=== PATIENT | male | born 1945 | race Caucasian/White ===

== ENCOUNTER → 2020-01-02 11:27 | Outpatient (CLI) | payer MEDICARE, OTHER, SELFPAY ==
[2020-01-02 12:10] LABS: Basophils % 0.8 % (0.1-2.0); Eosinophils % 0.8 % (0.1-12.0); Hematocrit 51.6 % (42.0-52.0); Hemoglobin 17.1 g/dL (14.1-18.0); Lymphocytes # 1.4 K/mm3 (0.7-4.5); Lymphocytes % 28.2 % (10-50); Mean Corpuscular HGB Conc 33.1 g/dL (31.8-35.4); Mean Corpuscular Hemoglobin 30.2 pg (27.0-31.2); Mean Corpuscular Volume 91.2 fl (80-94); Mean Platelet Volume 8.1 fl (7.4-10.4); Monocytes # 0.4 K/mm3 (0.1-1.0); Monocytes % 7.7 % (1.7-9.3); Neutrophils % 62.5 % (37.0-80.0); Platelet Count 169 K/mm3 (142-424); Red Blood Count 5.66 M/mm3 (4.60-6.20); Red Cell Distribution Width 14.3 % (11.5-17.5); White Blood Count 4.8 K/mm3 (4.8-10.8)
== END ==
PROVIDERS: PCP Family Medicine; Visit Provider Nurse Practitioner
DX: Z20.828 Contact with and (suspected) exposure to other viral communicable diseases (principal); U07.1 COVID-19
CPT/HCPCS: 36415; 85025; 87275; 87276; U0003

== ENCOUNTER 2020-09-14 19:45 | Observation (INO) | payer MEDICARE, OTHER, SELFPAY ==
[2020-09-14] VITALS (8 sets, daily range): BP systolic 142–183; BP diastolic 73–110; PULSE 59–71; RESP 16; TEMP 36.8; O2SAT 94–99; BMI 31.0
--- NOTE | 2020-09-14 20:01 | ECG_ITS ---
APPROVED REPORT Exam: Resting ECG HR:56 bpm ECG Measurements Heart Rate 56 AXES DC 196 P 78 QRSd 82 QRS -29 QT 446 T 242 QTc 430 Conclusion Sinus bradycardia Inferior infarct, age undetermined Anterolateral infarct, age undetermined Abnormal ECG Electronically signed by : Robert Betts, 09/15/2020 08:24:00
--- NOTE | 2020-09-14 20:01 | CT_ITS ---
PROCEDURE INFORMATION: Exam: CT Abdomen And Pelvis With Contrast Exam date and time: 09/14/2020 8:01 PM Age: 75 years old Clinical indication: Abdominal pain; Epigastric; Prior surgery; Surgery date: 6+ months; Surgery type: Gallbladder, appendix; Patient HX: Gassy feeling in stomach that goes up in to chest, has had episodes of abd bloating TECHNIQUE: Imaging protocol: Computed tomography of the abdomen and pelvis with contrast. Radiation optimization: All CT scans at this facility use at least one of these dose optimization techniques: automated exposure control; mA and/or kV adjustment per patient size (includes targeted exams where dose is matched to clinical indication); or iterative reconstruction. Contrast material: ISOVUE; Contrast volume: 75 ml; Contrast route: IV; COMPARISON: CR XR CHEST 2V 09/14/2020 9:11 PM FINDINGS: Liver: Hypoattenuating subcentimeter lesion in the left hepatic lobe, too small to characterize but likely benign. No suspicious liver lesions. Gallbladder and bile ducts: Status post cholecystectomy. Trace post cholecystectomy biliary ectasia, within normal limits. Pancreas: No pancreatic ductal dilation. Spleen: Within normal limits. Adrenal glands: Within normal limits. Kidneys and ureters: Punctate 1-2 mm non-obstructing stones in the left renal pelvis. No hydronephrosis bilaterally. Non-specific bilateral trace perinephric fat stranding. Delayed phase imaging shows symmetric excretion of contrast material into the urinary collecting system. Fluid density 2.0 cm lesion in the left kidney, compatible with simple cyst. Stomach and bowel: Colonic diverticulosis without evidence of acute diverticulitis. Small periampullary duodenal diverticulum. No associated inflammatory changes to suggest acute diverticulitis. Appendix: Appendix not visualized. No local inflammatory changes in the right lower quadrant to suggest acute appendicitis. Intraperitoneal space: No free fluid. No pneumoperitoneum. Vasculature: Moderate amount of calcified and non-calcified arterial atherosclerosis. Lymph nodes: No enlarged lymph nodes by CT criteria. Urinary bladder: Within normal limits. Reproductive: Within normal limits. Bones/joints: No acute osseous abnormality. Soft tissues: Bilateral fat containing inguinal hernias. IMPRESSION: 1. No acute findings in the abdomen or pelvis. 2. Periampullary duodenal diverticulum. Findings can be associated with various acute and/or chronic abdominal symptoms. Please correlate with patient history. 3. Non-obstructing left nephrolithiasis. 4. Colonic diverticulosis. COMMENTS: Consistent with the [employer]'s Incidental Findings Committee white paper (J Am Haylee Radiol 2018): Any incidental renal lesion less than 1 cm or classified as too small to characterize, or any incidental cystic renal lesion characterized as simple-appearing, is likely benign. No follow-up imaging is recommended for these lesions per consensus recommendations based on imaging criteria.
--- NOTE | 2020-09-14 20:01 | ECG_ITS ---
APPROVED REPORT Exam: Resting ECG HR:70 bpm ECG Measurements Heart Rate 70 AXES VA 180 P 34 QRSd 86 QRS -24 QT 394 T 240 QTc 425 Conclusion Sinus rhythm with premature atrial complexes Inferior infarct, age undetermined Anterolateral infarct, age undetermined Abnormal ECG Electronically signed by : oRbert Betts, 09/15/2020 08:24:13
--- NOTE | 2020-09-14 20:01 | XR_ITS ---
PROCEDURE INFORMATION: Exam: XR Chest Exam date and time: 09/14/2020 8:01 PM Age: 75 years old Clinical indication: Pain; Left-sided; Prior surgery; Surgery date: 6+ months; Patient HX: Cp, gassy feeling in abd, HX of stents TECHNIQUE: Imaging protocol: XR of the chest. Views: 2 views. COMPARISON: No relevant prior studies available. FINDINGS: Lungs: No focal consolidation. No appreciable pulmonary edema. Opacities projecting over the lung apices likely reflect superimposition of soft tissue structures. Pleural spaces: No pleural effusion. No pneumothorax. Heart/Mediastinum: Cardiac silhouette size is within normal limits. Tortuous aorta with mildly dilated aortic arch, compatible with longstanding systemic hypertension. Bones/joints: No acute osseous abnormality. Soft tissues: Unremarkable. IMPRESSION: No evidence of acute cardiopulmonary disease.
[2020-09-14 20:22] LABS: Basophils # 0.1 K/mm3 (0-0.2); Eosinophils # 0.2 K/mm3 (0.0-0.4); Eosinophils % 3.1 % (0.1-12.0); Hematocrit 47.3 % (42.0-52.0); Lymphocytes # 1.7 K/mm3 (0.7-4.5); Lymphocytes % 24.9 % (10-50); Mean Corpuscular HGB Conc 33.8 g/dL (31.8-35.4); Mean Corpuscular Hemoglobin 29.8 pg (27.0-31.2); Mean Corpuscular Volume 88.1 fl (80-94); Mean Platelet Volume 7.7 fl (7.4-10.4); Monocytes # 0.4 K/mm3 (0.1-1.0); Monocytes % 6.2 % (1.7-9.3); Neutrophils # 4.5 K/mm3 (1.8-7.8); Neutrophils % 64.8 % (37.0-80.0); Platelet Count 190 K/mm3 (142-424); Red Blood Count 5.37 M/mm3 (4.60-6.20); Red Cell Distribution Width 14.2 % (11.5-17.5); White Blood Count 6.9 K/mm3 (4.8-10.8)
[2020-09-14 20:44] LABS: Procalcitonin 0.071 ng/mL (0.0-2.0)
--- NOTE | 2020-09-14 20:50 | HMH.EDNVD ---
ED Disposition Clinical Impression: Unstable angina pectoris, Non-ST elevated myocardial infarction (non-STEMI), Obesity (BMI 30.0-34.9) Disposition: Admitted As Inpatient Condition on Discharge: Good - Critical Care Critical Care Time: No Attestation: On 09/14/20, the high probability of a clinically significant, sudden or life threatening deterioration of the following system(s) required my full and direct attention, intervention and personal management. The time I documented below is in addition to time spent performing reported procedures but includes the following listed in this critical care notation. Medical Decision Making - Medical Records Medical records reviewed: Yes: I reviewed the patient's medical records. - Roman Inquiry Pt receiving controlled substance: No Vital Signs: 09/14/20 19:46 09/14/20 20:25 09/14/20 20:31 Temperature 98.2 F Temperature Source Oral Pulse Rate 71 65 Pulse Rate [Right] 66 Respiratory Rate 16 16 16 Blood Pressure 172/78 H 159/90 H Blood Pressure [Right Arm] 180/91 H Blood Pressure Mean 119 Blood Pressure Mean [Right Arm] 120 02 Sat by Pulse Oximetry 99 94 L 94 L 09/14/20 21:00 09/14/20 22:00 09/14/20 22:30 Temperature Temperature Source Pulse Rate 67 60 60 Pulse Rate [Right] Respiratory Rate 16 16 16 Blood Pressure 142/73 H 150/90 H 157/95 H Blood Pressure [Right Arm] Blood Pressure Mean 96 106 116 Blood Pressure Mean [Right Arm] 02 Sat by Pulse Oximetry 97 95 95 - Lab Data Lab results reviewed: Yes: I reviewed the patient's lab results. Lab Results 09/14/20 19:45: WBC 6.9, RBC 5.37, Hgb 16.0, Hct 47.3, MCV 88.1, MCH 29.8, MCHC 33.8, RDW 14.2, Plt Count 190, MPV 7.7, Neut % (Auto) 64.8, Lymph % (Auto) 24.9, [place] % (Auto) 6.2, Eos % (Auto) 3.1, Baso % (Auto) 1.0, Neut # (Auto) 4.5, Lymph # (Auto) 1.7, [place] # (Auto) 0.4, Eos # (Auto) 0.2, Baso # (Auto) 0.1, ESR 14 09/14/20 19:45: Sodium 144, Potassium 4.0, Chloride 102, Carbon Dioxide 34 H, Anion Gap 12.0, BUN 15, Creatinine 0.90, Estimated Creat Clear 87, Estimated GFR 82, Est GFR ( Amer) 100, Glucose 114 H, Calcium 9.1, Total Bilirubin 0.7, AST 44, ALT 21, Alkaline Phosphatase 60, Troponin I 0.43 H, C-Reactive Protein 4.4 H, Total Protein 7.6, Albumin 4.5, Globulin 3.1, Albumin/Globulin Ratio 1.5, Amylase 82, Lipase 125 09/14/20 19:45: Procalcitonin 0.071 09/14/20 22:22: Troponin I 0.51 H Result diagrams: 09/14/20 19:45 09/14/20 19:45 Orders (Tests/Meds): ED MEDICATIONS Generic Name Dose Route Start Last Admin Trade Name Freq PRN Reason Stop Dose Admin Sodium Chloride 1,000 mls @ 999 mls/hr 09/14/20 20:15 09/14/20 20:17 Sod Chlor 0.9% 1000ml Bag IV 09/14/20 21:15 999 mls/hr .Q1H1M JOAO Administration Sodium Chloride 8 ml 09/14/20 20:03 Sodium Chloride 0.9% 10ml Vial IV 10/14/20 20:02 NEEDED PRN dilute pepcid Discontinued Medications Generic Name Dose Route Start Last Admin Trade Name Freq PRN Reason Stop Dose Admin Enoxaparin Sodium 100 mg 09/14/20 23:24 09/14/20 23:27 Enoxaparin 100mg/Ml Syringe SQ 09/14/20 23:25 100 mg ONCE ONE Administration Famotidine 20 mg 09/14/20 20:03 09/14/20 20:06 Famotidine 20mg/2ml Vial IV 09/14/20 20:04 20 mg ONCE ONE Administration Hydralazine HCl 10 mg 09/14/20 23:43 09/14/20 23:44 Hydralazine 20mg/Ml Vial IV 09/14/20 23:44 10 mg ONCE ONE Administration Iopamidol 75 ml 09/14/20 21:48 09/14/20 21:49 Iopamidol-370 (76%);100ml Bottle IV 09/14/20 21:49 75 ml ONCE ONE Administration Ketorolac Tromethamine 30 mg 09/14/20 20:03 09/14/20 20:06 Ketorolac 30mg/Ml Vial IV 09/14/20 20:04 30 mg ONCE ONE Administration Metoclopramide HCl 10 mg 09/14/20 20:03 09/14/20 20:06 Metoclopramide Hcl 10mg/2ml Vial IVP 09/14/20 20:04 10 mg ONCE ONE Administration Ondansetron HCl 4 mg 09/14/20 20:03 09/14/20 20:06 Ondansetron 4mg/2ml Vial I
[2020-09-14 20:56] LABS: Erythrocyte Sedimentation Rate 14 mm/hr (0-20)
[2020-09-14 21:10] LABS: Alanine Aminotransferase 21 U/L (12-78); Albumin Level 4.5 g/dl (3.5-5.0); Albumin/Globulin Ratio 1.5 (1.1-1.8); Alkaline Phosphatase 60 U/L (38-126); Amylase 82 U/L (30-110); Aspartate Amino Transferase 44 U/L (17-59); Bilirubin,Total 0.7 mg/dl (0.2-1.3); Blood Urea Nitrogen 15 mg/dl (9-20); Calcium 9.1 mg/dl (8.4-10.2); Carbon Dioxide 34 mmol/L (22.0-30.0); Chloride 102 mmol/L (98-107); Creatinine Clearance Estimated 87 mL/min (50-200); Estimated Glomerular Filt Rate 82 ml/min (>60); GFR (African American) 100 ML/MIN (>60); Globulin 3.1 g/dL (1.3-3.2); Glucose 114 mg/dl (74-100); Lipase 125 U/L (23-300); Sodium 144 mmol/L (136-145); Total Protein,Serum 7.6 g/dl (6.3-8.2)
[2020-09-14 21:16] LABS: C-Reactive Protein 4.4 mg/L (0-4)
[2020-09-14 21:24] LABS: Troponin I 0.43 ng/ml (0.00-0.034)
[2020-09-14 22:54] LABS: Troponin I 0.51 ng/ml (0.00-0.034)
[2020-09-14 23:16] LABS: Coronavirus 19, PCR Not Detected (NotDetected); Influenza A, PCR Not Detected (NotDetected); Influenza B, PCR Not Detected (NotDetected)
--- NOTE | 2020-09-14 23:22 | PC.NURSE ---
Dr Poon spoke with Dr Dorsey
--- NOTE | 2020-09-14 23:50 | PC.NURSE ---
Dr Poon on with Dr Cheung
[2020-09-15] VITALS (10 sets, daily range): BP systolic 130–167; BP diastolic 69–118; PULSE 60–82; RESP 16–19; TEMP 36.6–36.9; O2SAT 95–98; BMI 31.4
--- NOTE | 2020-09-15 00:40 | PC.NURSE ---
patient up to floor via wheelchair.
[2020-09-15 02:43] LABS: Troponin I 0.53 ng/ml (0.00-0.034)
--- NOTE | 2020-09-15 02:43 | PC.NURSE ---
received tropinin level of 0.53, last level 0.51. passed on to nursing caring for patient patti saunders
[2020-09-15 06:59] LABS: Basophils # 0.1 K/mm3 (0-0.2); Basophils % 1.2 % (0.1-2.0); Eosinophils # 0.1 K/mm3 (0.0-0.4); Eosinophils % 1.7 % (0.1-12.0); Hematocrit 41.5 % (42.0-52.0); Lymphocytes # 1.5 K/mm3 (0.7-4.5); Lymphocytes % 20.1 % (10-50); Mean Corpuscular HGB Conc 34.5 g/dL (31.8-35.4); Mean Corpuscular Hemoglobin 30.2 pg (27.0-31.2); Mean Corpuscular Volume 87.4 fl (80-94); Mean Platelet Volume 7.6 fl (7.4-10.4); Monocytes # 0.3 K/mm3 (0.1-1.0); Monocytes % 4.5 % (1.7-9.3); Neutrophils # 5.3 K/mm3 (1.8-7.8); Neutrophils % 72.6 % (37.0-80.0); Platelet Count 159 K/mm3 (142-424); Red Blood Count 4.74 M/mm3 (4.60-6.20); Red Cell Distribution Width 14.3 % (11.5-17.5); White Blood Count 7.4 K/mm3 (4.8-10.8)
[2020-09-15 07:09] LABS: Anion Gap 9.8 mEq/L (5-15); Blood Urea Nitrogen 12 mg/dl (9-20); Calcium 8.3 mg/dl (8.4-10.2); Carbon Dioxide 29 mmol/L (22.0-30.0); Chloride 107 mmol/L (98-107); Chol/HDL Ratio 6.6 (1-3.5); Cholesterol 197 mg/dl (140-200); Creatinine Clearance Estimated 91 mL/min (50-200); Estimated Glomerular Filt Rate 82 ml/min (>60); GFR (African American) 100 ML/MIN (>60); Glucose 101 mg/dl (74-100); HDL Cholesterol 30 mg/dl (40-60); Magnesium 1.7 mg/dl (1.6-2.3); Potassium 3.8 mmoL/L (3.5-5.1); Sodium 142 mmol/L (136-145); Triglycerides 185 mg/dl (30-150); VLDL Cholesterol 37 mg/dL (0-40)
[2020-09-15 07:12] LABS: Hemoglobin 14.3 g/dL (14.1-18.0)
[2020-09-15 07:20] LABS: Direct LDL Cholesterol 122.33 mg/dL (100-129)
--- NOTE | 2020-09-15 09:51 | ECG_ITS ---
APPROVED REPORT Exam: Resting ECG HR:62 bpm ECG Measurements Heart Rate 62 AXES HI 180 P 22 QRSd 86 QRS -28 QT 450 T -90 QTc 456 Conclusion Sinus rhythm with premature atrial complexes Inferior and anterolateral changes are old Abnormal ECG Electronically signed by : Robert Betts, 09/17/2020 17:04:16
--- NOTE | 2020-09-15 10:32 | P.CONPHA_ITS ---
[facility] Pharmacy VTE Monitoring - Patient Demographics Admission date: 09/15/20 Report Date: 09/15/20 Time: 10:32 Allergies/Adverse Reactions: Patient Allergies No Known Allergies Allergy (Verified 09/14/20 20:01) Height: 1.78 m Weight: 99.393 kg Patient Problems: Current Active Problems Unstable angina pectoris (Acute) Non-ST elevated myocardial infarction (non-STEMI) (Acute) Obesity (BMI 30.0-34.9) (Acute) - VTE Risk Labs: VTE Related Lab Results Hgb 14.3 g/dL (14.1-18.0) D 09/15/20 06:43 Hct 41.5 % (42.0-52.0) L 09/15/20 06:43 Plt Count 159 K/mm3 (142-424) 09/15/20 06:43 BUN 12 mg/dl (9-20) 09/15/20 06:43 Creatinine 0.90 mg/dl (0.66-1.25) 09/15/20 06:43 Estimated Creat Clear 91 mL/min (50-200) 09/15/20 06:43 VTE Score: 2 VTE Risk Level: Low Risk - Prophylaxis Types of VTE Prophylaxis: TEDS Knee High (ASHLEY HOSE ORDERED)
--- NOTE | 2020-09-15 10:50 | HMH.HP ---
*Admission Date: 09/15/20 *Chief complaint: Chest pain *History of present illness: 75 y.o. WM was admitted last night via ER with impression of unstable angina and non-STEMI. He has a history of CAD with stents placed circa 2008 in [facility]. He describes chest discomfort over the past several days, exertional. He describes pain in a band-like distribution across the chest with radiation to the arms. No vomiting, no diaphoresis, but similar to previous episode that led to stenting. Was treated in the ER with relief of symptoms. ER spoke with Dr. Dorsey who recommended admission. Will likely receive cardiac catheterization in AM. Strong family history of heart disease (Mother). Patient never smoked. [facility] History Medical History: Reports:: Coronary Artery Disease, Hyperlipidemia, Hypertension Denies:: Cerebrovascular Accident, Diabetes Mellitus Type 1, Diabetes Mellitus Type 2, Lung Disease, Myocardial Infarction *Have you ever received a pneumonia vaccine?: No *Have you received a flu vaccine this season?: No Other Medical History: Denies: Thyroid Disease Other Surgeries: Yes: Angioplasty, Appendectomy, Cardiac Catheterization, Cholecystectomy - *Social History Last grade of school completed: Advanced degree Smoking Status: Never smoker Alcohol Intake: never Alcohol Intake Frequency:: a few times a month (perhaps a beer a month) *Occupational Status:: retired (from [employer]) Housing: house Household Members: spouse *Travel in the last 8 weeks: None Family Hx:: Coronary Artery Disease, Hyperlipidemia, Hypertension, Other (4 children) Review of Systems - Constitutional Denies body ache(s), Denies chills, Denies lack of energy - Eyes Denies change in vision - ENT Denies difficulty swallowing - *Cardiovascular Reports chest pain, Reports chest pain with activity, Reports leg swelling, Denies irregular heart rhythm, Denies rapid, pounding, or irregular heartbeat - *Respiratory Denies chest congestion - *Gastrointestinal Denies abdominal pain - *Genitourinary Reports difficulty urinating (prostate issues) - *Musculoskeletal Denies abnormal walking, Denies decreased muscle mass - Integumentary/Breasts Denies bleeding lesions, Denies changing lesions - *Neurologic Denies seizure-like activity, Denies dizziness, Denies weakness - Allergic/Immunologic Denies GI upset with certain foods Meds Home Medications Medication Instructions Recorded Confirmed Type Finasteride [Proscar] 5 mg PO DAILY 09/14/20 09/14/20 History atenoloL [Atenolol 50mg Tab] 50 mg PO DAILY 09/14/20 09/14/20 History Allergies Allergy/AdvReac Type Severity Reaction Status Date / Time No Known Allergies Allergy Verified 09/14/20 20:01 Exam Vital signs and Labs for Last 24 Hours: Temp Pulse Resp BP Pulse Ox 97.8 F 61 16 137/70 95 09/15/20 08:00 09/15/20 08:00 09/15/20 08:00 09/15/20 08:00 09/15/20 08:00 Laboratory Results - last 24 hr 09/14/20 19:45: WBC 6.9, RBC 5.37, Hgb 16.0, Hct 47.3, MCV 88.1, MCH 29.8, MCHC 33.8, RDW 14.2, Plt Count 190, MPV 7.7, Neut % (Auto) 64.8, Lymph % (Auto) 24.9, [place] % (Auto) 6.2, Eos % (Auto) 3.1, Baso % (Auto) 1.0, Neut # (Auto) 4.5, Lymph # (Auto) 1.7, [place] # (Auto) 0.4, Eos # (Auto) 0.2, Baso # (Auto) 0.1, ESR 14 09/14/20 19:45: Sodium 144, Potassium 4.0, Chloride 102, Carbon Dioxide 34 H, Anion Gap 12.0, BUN 15, Creatinine 0.90, Estimated Creat Clear 87, Estimated GFR 82, Est GFR ( Amer) 100, Glucose 114 H, Calcium 9.1, Total Bilirubin 0.7, AST 44, ALT 21, Alkaline Phosphatase 60, Troponin I 0.43 H, C-Reactive Protein 4.4 H, Total Protein 7.6, Albumin 4.5, Globulin 3.1, Albumin/Globulin Ratio 1.5, Amylase 82, Lipase 125 09/14/20 19:45: Procalcitonin 0.071 09/14/20 22:22: Troponin I 0.51 H 09/14/20 23:08: SARS-CoV-2 (PCR) Not detected, Influenza A Untype (PCR) Not detected, Influenza Type B (PCR) Not detected 09/15/20 02:05: Troponin I 0.53 H 09/15/20 06:43: WBC 7.4, RB
--- NOTE | 2020-09-15 16:52 | PC.NURSE ---
Pt has been pleasant and cooperative this shift. A&O X4. No complaints of pain. Appetite is good and pt eats almost 100% of every meal. Pt is on room air with sats. >90%. Lungs CTA. 1+ pitting edema noted to BLE. Telemetry reveals NSR. Skin is C/D/I. Pt ambulates independently to/from the bathroom and throughout the room. Abdomen is soft and non-tender. Pt voids clear, yellow urine without issue. No BM thus far this shift. 18 G peripheral IV in the LT AC is patent and infusing NS @ 75 ML/HR. VSS. Call light within reach. Will continue to monitor.
[2020-09-16] VITALS (22 sets, daily range): BP systolic 117–179; BP diastolic 59–99; PULSE 50–82; RESP 15–20; TEMP 36.5–36.7; O2SAT 95–99; BMI 31.3
--- NOTE | 2020-09-16 | IR_ITS ---
APPROVED REPORT Patient Location: Inpatient Client Development Manager: YANIV Crystal RT (R) PROCEDURES Catheter placement in the right subclavian artery Right subclavian artery retrograde angiogram left heart catheterization Left ventriculogram Selective coronary angiogram Drug-eluting stent deployment to the first obtuse marginal artery of the circumflex artery Drug-eluting stent deployment to the mid LAD Drug-eluting stent deployment to the proximal mid and distal dominant right coronary INDICATION Acute non-ST elevation myocardial infarction, Coronary artery disease, Right subclavian artery tortuosity/stenosis Informed consent was obtained prior to the procedure. COMPLICATIONS None Estimated Blood Loss: Less than 10 mls TECHNIQUE One percent lidocaine used to anesthetize the right anterior aspect of the wrist. The right radial artery was accessed via the Seldinger technique. A 6 [place] sheath was placed in the right radial artery. 2.5 mg of verapamil, 800 mcg of nitroglycerin, 1mg Lidocaine and 5000 U Heparin were given through the arterial sheath. There was difficulty traversing the right subclavian vessel due to profound tortuosity. An advantage wire the was required in order to negotiate the tortuosity. Retrograde angiography was performed. This did require significant manipulation and quite a bit of fluoroscopy time before the catheter could eventually be passed and then used to perform left heart catheterization left ventriculogram and selective coronary angiogram. At the end of the diagnostic angiogram therapeutic heparin was administered giving a therapeutic ACT and the guide catheter was placed in the left main artery. A wire was placed down the LAD as well as the circumflex artery. A 2.5 x 22 mm resolute Marana stent was deployed at 20 cristofer in the first obtuse marginal artery reducing the 70 to 80% eccentric stenosis to 0%. DEMETRIUS-3 flow was present before and after the procedure and excellent angiographic results were obtained. Following this the wire and balloon were removed and a 2.5 x 8 mm resolute Alexandr stent was then placed in the mid LAD and deployed at 20 cristofer reducing the 70% stenosis to 0%. The wire was pulled back and the balloon was removed from the patient. The same guide catheter was used to cannulate the right coronary artery and the Choice PT extra-support wire was placed distally. A 4 mm x 12 mm resolute Alexandr stent was deployed at 20 cristofer which reduce the critical stenosis. This actually highlighted the proximal and mid vessel stenosis and an identifiable eccentric dissection was present distally. A 4 mm x 38 mm stent was then deployed at 20 cristofer in the proximal segment of the stent which was also distal to the stent and encompassed the entire amount of the stent. This was deployed and the proximal stenosis looks fantastic. Following deployment this also highlighted the significant disease within the mid right coronary artery therefore an additional 4 mm x 22 mm resolute Marana stent was then placed distal to the 38 mm stent yet still overlapping it and deployed at 16 cristofer. The balloon was brought back and deployed at 20 cristofer to mesh the 2 stents. After achieving excellent angiograph results the apparatus was removed the sheath was removed hemostasis was achieved using TR banding patient was transferred to the postop already in stable condition ANGIOGRAPHIC RESULTS The left main artery Normal The left anterior descending artery Has a stent in the proximal segment which is widely patent free of in-stent restenosis with excellent proximal transitioning. Distally the stent transitions into the mid LAD followed by concentric 60 to 70% stenosis. The circumflex artery Is a nondo
--- NOTE | 2020-09-16 03:10 | PC.NURSE ---
Pt A&O x4 and has lept well through the night. No c/o chest pain or discomfort. Pt able to ambulate independently to the BR. Lovenox and Brilinta were held for cath in the AM. Lungs CTA, on room air. Bowel sounds x4, abd soft and nontender. IV patent, NS @ 75. VSS, call light in reach, no concerns at this time.
[2020-09-16 06:16] LABS: Basophils # 0.1 K/mm3 (0-0.2); Basophils % 0.9 % (0.1-2.0); Eosinophils # 0.2 K/mm3 (0.0-0.4); Eosinophils % 4.2 % (0.1-12.0); Hematocrit 42.6 % (42.0-52.0); Lymphocytes # 1.8 K/mm3 (0.7-4.5); Mean Corpuscular Hemoglobin 29.5 pg (27.0-31.2); Mean Corpuscular Volume 89.5 fl (80-94); Mean Platelet Volume 7.3 fl (7.4-10.4); Monocytes # 0.4 K/mm3 (0.1-1.0); Monocytes % 6.7 % (1.7-9.3); Neutrophils % 55.2 % (37.0-80.0); Platelet Count 159 K/mm3 (142-424); Red Blood Count 4.76 M/mm3 (4.60-6.20); Red Cell Distribution Width 13.7 % (11.5-17.5); White Blood Count 5.4 K/mm3 (4.8-10.8)
[2020-09-16 06:58] LABS: Anion Gap 9.9 mEq/L (5-15); Blood Urea Nitrogen 16 mg/dl (9-20); Calcium 8.4 mg/dl (8.4-10.2); Carbon Dioxide 28 mmol/L (22.0-30.0); Chloride 107 mmol/L (98-107); Creatine Kinase 62 U/L (55-170); Creatinine Clearance Estimated 91 mL/min (50-200); Estimated Glomerular Filt Rate 73 ml/min (>60); GFR (African American) 88 ML/MIN (>60); Glucose 94 mg/dl (74-100); Potassium 3.9 mmoL/L (3.5-5.1); Sodium 141 mmol/L (136-145)
[2020-09-16 07:09] LABS: CKMB Relative Index 1.8 U/L (0-4.0); Creatine Kinase MB 1.1 ng/ml (0.0-2.03)
[2020-09-16 07:22] LABS: Troponin I 0.56 ng/ml (0.00-0.034)
--- NOTE | 2020-09-16 07:57 | HMH.ACPN2 ---
Internal Medicine - PN: Subj *Date: 09/16/20 *Time: 07:57 Interval history: Patient did sleep some last night. He denies chest pain and shortness of breath. He is ready for his cardiac cath and has made himself n.p.o. during the night. Is anxious about having this done due to his 's illness who had cervical spine surgery 10 days ago.. 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 Patient is voiding QS. He did have Lasix yesterday with increased urinary output. He ate without difficulty yesterday. He ambulated in the room stating that he did feel different after exertion but again denies chest pain. Repeat labs today show good CBC with blood chemistries show normal electrolytes and renal function. To note cholesterol profile total cholesterol is 197 with an LDL of 122.3. Triglycerides are elevated at 185. Exam Vital signs and Labs for Last 24 Hours: Temp Pulse Resp BP Pulse Ox 98.0 F 74 17 142/78 H 96 09/16/20 03:48 09/16/20 03:48 09/16/20 03:48 09/16/20 03:48 09/16/20 03:48 Laboratory Results - last 24 hr 09/16/20 05:58: WBC 5.4 D, RBC 4.76, Hgb 14.0 L, Hct 42.6, MCV 89.5, MCH 29.5, MCHC 33.0, RDW 13.7, Plt Count 159, MPV 7.3 L, Neut % (Auto) 55.2, Lymph % (Auto) 33.0, [place] % (Auto) 6.7, Eos % (Auto) 4.2, Baso % (Auto) 0.9, Neut # (Auto) 3.0, Lymph # (Auto) 1.8, [place] # (Auto) 0.4, Eos # (Auto) 0.2, Baso # (Auto) 0.1 09/16/20 05:58: Sodium 141, Potassium 3.9, Chloride 107, Carbon Dioxide 28, Anion Gap 9.9, BUN 16 D, Creatinine 1.00, Estimated Creat Clear 91, Estimated GFR 73, Est GFR ( Amer) 88, Glucose 94, Calcium 8.4, Total Creatine Kinase 62, CK-MB (CK-2) 1.1, CK-MB (CK-2) Rel Index 1.8, Troponin I 0.56 H I & O for Last 24 hours: Intake & Output 09/13/20 09/14/20 09/15/20 09/16/20 11:59 11:59 11:59 11:59 Intake Total 1240 / 1240 1534 / 1534 Balance 1240 / 1240 1534 / 1534 Weight 219 lb 2 oz 218 lb 11.2 oz - Constitutional no acute distress Comments: Little anxious about getting heart cath completed. He appears comfortable. - *Routine Respiratory Exam Present: CTA bilaterally (Anteriorly and posteriorly) - *Routine Cardiovascular Exam Present: RRR - *Routine Abdominal Exam Present: soft, normoactive bowel sounds. Absent: tenderness, distended - *Routine Extremities Exam Present: edema (Trace bilaterally) - *Routine Neurological Exam Present: alert, oriented X3 Assessment and Plan (1) Non-ST elevated myocardial infarction (non-STEMI) Status: Acute Category: Medical Code(s): I21.4 - Non-ST elevation (NSTEMI) myocardial infarction (2) Unstable angina pectoris Status: Acute Category: Medical Code(s): I20.0 - Unstable angina (3) Coronary artery disease Status: Acute Category: Medical Code(s): I25.10 - Atherosclerotic heart disease of [place] coronary artery without angina pectoris (4) History of heart artery stent Status: Acute Category: Surgical Code(s): Z95.5 - Presence of coronary angioplasty implant and graft (5) Obesity (BMI 30.0-34.9) Status: Acute Category: Medical Code(s): E66.9 - Obesity, unspecified - Assessment and plan all Dx Assessment and Plan for all problems:: Cardiology has seen patient and is scheduling cardiac cath. We will stop IV fluids and saline lock
--- NOTE | 2020-09-16 08:00 | CA_ITS ---
APPROVED REPORT EXAM: Comprehensive 2D, Doppler, and color-flow Echocardiogram [employer] Man: Sandy Duran RT(R) Ht: 5 ft 10 in Wt: 218lbs BSA: 2.17 BP: 137/70 mmHg Indications: CP, NSTEMI, CAD, Stents, HTN, hyperlipidemia 2D Dimensions LVOT 2.04 cm (M/F) 1.5-2.5 LVEF (Chapa's) 56.40 % M: 52 - 72 LV Volume 132.90 mL M: 62 - 150 LV Volume Index 61.52 mL/m2 M: 34 - 74 LA Volume 26.40 mL LA Volume Index 12.22 mL/m2 (M/F) 16-34 M-Mode Dimensions RVDd 2.29 cm (0.9-2.6) LA Diam 3.39 cm (1.9-4.0) LVDd 4.71 cm (3.5-5.7) Ao Diam 3.23 cm (2.0-3.7) LVDs 3.18 cm (3.5-5.7) IVSd 1.17 cm (0.6-1.1) PWd 0.97 cm (0.6-1.1) EF (Teich) 60.80% FS 32.50% EDV (Teich) 102.90 mL ESV (Teich) 40.30 mL LV Diastology E Decel Time 210.00 (160-240 msec) E/A Ratio 0.7 MED E' 10.00 (< 7 cm/sec) E'/MED E' Ratio 7.08 (>14) LAT E' 42.40 (<10 cm/sec) E/LAT E' Ratio 1.67 (>14) Mitral Valve MV E Max Cuco. 71.00 (40-130 cm/s) MV A Velocity 95.00 (40-130 cm/s) E/A Ratio 0.75 MV Decel. Time 210.00 (160-240 ms) MV PHT 62.00 ms Left Ventricle Left atrium is mildly enlarged, left ventricle is normal size, mild concentric left ventricular hypertrophy, visually estimated ejection fraction 55% with no regional wall motion abnormality, endocardial surfaces are poorly visualized, diastolic parameters are inconclusive. Right Ventricle Right atrium and right ventricle are normal size and contractility. Aortic Valve Aortic valve is minimally thickened and fibrosed, there is no aortic stenosis or aortic insufficiency. Mitral Valve Mitral valve is grossly normal, there is trace mitral regurgitation. Tricuspid Valve Tricuspid valve grossly normal, there is trace tricuspid regurgitation. Pulmonic Valve Pulmonic valve is poorly visualized. Great Vessels Aortic root is normal size. Pericardium No significant pericardial effusion noted. Conclusion 1. Normal left ventricular size, preserved left ventricular systolic function, visually estimated ejection fraction 55% with no regional wall motion abnormality, diastolic parameters of inconclusive. 2. Trace mitral and tricuspid regurgitation. 3. No significant pericardial effusion noted. Electronically signed by : Jorge Kapoor, 09/16/2020 21:40:04
--- NOTE | 2020-09-16 08:09 | HMH.CNCARD ---
<HusseinShruthi - Last Filed: 09/16/20 08:21> History of Present Illness Consult date: 09/16/20 Requesting physician: Jacqueline Cheung Consult reason: chest pain Chief complaint: Chest pain History of present illness: 75-year-old male presented to [facility] with what he describes as epigastric pain. Patient was admitted for non-STEMI. Patient states for the past few weeks he has been noticing more of this epigastric pain or gas pains that seem to have become worse in the past few days. Patient states he arrived to the ED on 09/14/20, complaining of midsternal chest pain radiating down arms. Patient states he was nauseated and did have some episodes of vomiting prior to admission to the ED. Patient states this midsternal chest pain was accompanied with increased shortness of breath. Patient states he is physically active and usually has no health concerns. No swelling noted of the lower extremity. Patient denies chest pain, tightness or pressure at this time. Patient denies shortness of breath. Patient does seem to be anxious this a.m. 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 Patient does complain of increased fatigue in the past few days. Patient does have history of coronary artery disease in which in 2008 he required stenting to the mid LAD and proximal LAD. This was performed at [facility]. Patient does have history of hypertension. Patient has had elevated hypertension at this time. Patient does have history of hyperlipidemia. Patient states he is unable to take statins due to muscle fatigue. Patient states he has been treated with multiple statins and seems to have the same effect. Patient states he is able to control his hyperlipidemia with diet and exercise. Patient is not willing at this time to take antihypertensives. Patient is an non-smoker. Patient states he has not seen a bowling pin refinisher for 2 years due to relocating to this area. Initial EKG revealed sinus rhythm with inferior infarct, anterior lateral infarct, abnormal ECG with a heart rate of 70 bpm. Patient is noted to be in sinus rhythm with a heart rate of 73 bpm on playground monitor. Serial troponins were noted as elevated. Last troponin noted at 0.56. Chest x-ray revealed no evidence of acute cardiopulmonary disease. Creatinine and BUN within normal. LDL was noted as 122. ABD CT:IMPRESSION: 1. No acute findings in the abdomen or pelvis. 2. Periampullary duodenal diverticulum. Findings can be associated with various acute and/or chronic abdominal symptoms. Please correlate with patient history. 3. Non-obstructing left nephrolithiasis. 4. Colonic diverticulosis. Discussed plan of care with Dr. Dorsey. Orders and recommendations were received from Dr. Dorsey. Discussed with patient the risk and benefits of undergoing left heart catheterization with right radial access. Patient verbalizes understanding and is agreeable to procedure. Obtain echocardiogram to assess LV function and valve status. Pending on the results of the left heart catheterization and echocardiogram, medication and treatment therapies may be recommended. Due to patient's LDL goal is 55, and patient has tried several statins, patient may benefit from trying Repatha. We will discuss this with patient once heart catheterization has been performed. Continue to monitor patient status. Please notify cardiology of any changes in patient status. Thank you for allowing cardiology to participate in the care of this patient. [facility] History I have reviewed the patient's past medical history: Yes Medical History: Reports:: Coronary Artery Disease, Hyperlipidemia, Hypertension Denies:: Cerebrovascular Accident, Diabetes Mellitus Type 1, Diabetes Mellitus Type 2, Lung Disease, Myocardial Infarction *Have you ever received a pneumonia vaccine?: No *Have you received a flu vaccine this season?: No Other Medical Histo
[2020-09-16 14:49] LABS: CATHL Activated Clotting Time 271 SEC (74-125)
[2020-09-16 14:50] LABS: CATHL Activated Clotting Time 385 SEC (74-125)
--- NOTE | 2020-09-16 16:28 | PC.NURSE ---
PT IS SITTING UP IN THE BED WITH FAMILY AT BEDSIDE. ALERT AND ORIENTED X4. PT HAS BEEN UP AMBULATING TO THE BATHROOM. PALPABLE PULSES. LUNG SOUNDS CLEAR. ABDOMEN SOFT/NON TENDER WITH ACTIVE BOWEL SOUNDS. 1+ EDEMA NOTED TO BLE. EATING AND DRINKING WELL. VSS. WILL CONTINUE TO MONITOR.
[2020-09-17] VITALS: PULSE 50
[2020-09-17 00:52] VITALS: BP 122/69; PULSE 69; RESP 20; TEMP 36.7; O2SAT 98
--- NOTE | 2020-09-17 03:35 | PC.NURSE ---
No acute changes overnight. A&O. drsg on right rad cath site CDI. Pt able to ambulate independently. No c/o pain. VSS, call light in reach, no concerns at this time.
[2020-09-17 04:00] VITALS: BP 127/80; PULSE 49; PULSE 56; RESP 20; TEMP 36.6; O2SAT 96
[2020-09-17 04:56] VITALS: BMI 30.7
[2020-09-17 07:32] LABS: Basophils % 0.5 % (0.1-2.0); Eosinophils # 0.2 K/mm3 (0.0-0.4); Eosinophils % 3.5 % (0.1-12.0); Hematocrit 42.6 % (42.0-52.0); Hemoglobin 13.6 g/dL (14.1-18.0); Lymphocytes # 1.4 K/mm3 (0.7-4.5); Lymphocytes % 24.9 % (10-50); Mean Corpuscular Hemoglobin 28.9 pg (27.0-31.2); Mean Corpuscular Volume 90.4 fl (80-94); Mean Platelet Volume 7.4 fl (7.4-10.4); Monocytes # 0.4 K/mm3 (0.1-1.0); Monocytes % 6.7 % (1.7-9.3); Neutrophils # 3.7 K/mm3 (1.8-7.8); Neutrophils % 64.3 % (37.0-80.0); Platelet Count 164 K/mm3 (142-424); Red Blood Count 4.71 M/mm3 (4.60-6.20); Red Cell Distribution Width 13.6 % (11.5-17.5); White Blood Count 5.7 K/mm3 (4.8-10.8)
--- NOTE | 2020-09-17 07:44 | HMH.PNCARD ---
Subjective Date: 09/17/20 Time: 07:30 Principal diagnosis: Unstable angina Interval history: 75-year-old male been admitted to facility for unstable angina. Patient did undergo left heart catheterization yesterday which revealed successful stenting to the proximal mid and distal dominant RCA with 3 drug-eluting stents, severe disease in the large first obtuse marginal artery, successful stenting in the first obtuse marginal artery severe disease with 1 drug-eluting stent, moderate to severe edge stenosis in the mid LAD, successful stenting of the mid LAD moderate to severe disease reduced to 0% with 1 drug-eluting stent. Preserved EF with mildly elevated LVEDP. Patient was started on Brilinta 90 mg twice daily along with aspirin 81 mg daily. Patient is currently on beta-lina and an SARAH inhibitor was started last evening. Patient states he is unable to take a statin due to muscle cramps and leg fatigue. I have discussed with patient the possibility of Repatha due to his intolerance to statins. We can discuss this in his 1 week follow-up with cardiology. Patient denies chest pain, tightness or pressure. Denies shortness of breath. No swelling noted of the lower extremities. No swelling or drainage noted around the site of the right radial cath site. Dressing is dry and intact. Overall patient states he is feeling well. Vital signs are stable. Discussed cardiac rehab with patient due to post stenting. Patient states he is physically active daily. Stated we would discuss this at his 1 week follow-up with cardiology. LHC: The left main artery Normal The left anterior descending artery Has a stent in the proximal segment which is widely patent free of in-stent restenosis with excellent proximal transitioning. Distally the stent transitions into the mid LAD followed by concentric 60 to 70% stenosis. The circumflex artery Is a nondominant vessel and has proximal 40 to 50% stenosis with an eccentric 70 to 80% stenosis in a large first obtuse marginal artery The right coronary artery Is a large dominant vessel and has proximal 30 to 40% stenosis followed by a critical greater than 90% stenosis followed by additional mild atheromatous plaque throughout the mid segment. The HERNADEZ ventriculogram reveals Preserved at 55 to 60% The left ventricular end-diastolic pressure 15 mmHg IMPRESSION Critical dominant right coronary disease as described above Successful stenting of the proximal mid and distal dominant right coronary critical disease reduced to 0% with 3 drug-eluting stents placed in a contiguous manner Severe disease in the large first obtuse marginal artery Successful stenting the first obtuse marginal artery severe disease reduced to 0% with 1 drug-eluting stent Moderate to severe edge stenosis in the mid LAD Successful stenting of the mid LAD moderate to severe disease reduced to 0% with 1 drug-eluting stent Preserved ejection fraction Mildly elevated LVEDP PLAN 1. Brilinta 90 twice daily plus aspirin 81 mg daily 2. Beta-blockers and SARAH inhibitors 3. LDL less than 55 to be achieved with high intensity statin 4. Cardiac rehabilitation 5. Avoidance of tobacco products Echo:Conclusion 1. Normal left ventricular size, preserved left ventricular systolic function, visually estimated ejection fraction 55% with no regional wall motion abnormality, diastolic parameters of inconclusive. 2. Trace mitral and tricuspid regurgitation. 3. No significant pericardial effusion noted. Discussed plan of care with Dr. Dorsey. Orders were received from Dr. Dorsey. Patient was started on Brilinta 90 mg twice daily along with aspirin 81 mg daily due to post stenting and ischemic CAD. Patient is to continue his beta-lina along with his lisinopril for ischemic CAD. Patient states he is unable to tolerate statins due to muscle cramps. Will discuss Repatha at cardiology follow-up in 1 week. Patient was instructed no sheila
[2020-09-17 08:00] VITALS: BP 135/78; PULSE 59; PULSE 60; RESP 16; TEMP 36.5; O2SAT 97
[2020-09-17 08:00] LABS: Anion Gap 7.8 mEq/L (5-15); Blood Urea Nitrogen 16 mg/dl (9-20); Calcium 8.5 mg/dl (8.4-10.2); Carbon Dioxide 27 mmol/L (22.0-30.0); Chloride 107 mmol/L (98-107); Creatinine Clearance Estimated 89 mL/min (50-200); Estimated Glomerular Filt Rate 82 ml/min (>60); GFR (African American) 100 ML/MIN (>60); Glucose 100 mg/dl (74-100); Potassium 3.8 mmoL/L (3.5-5.1); Sodium 138 mmol/L (136-145)
--- NOTE | 2020-09-17 08:10 | HMH.ACPN2 ---
Internal Medicine - PN: Subj *Date: 09/17/20 *Time: 08:10 Interval history: Patient did sleep some last night. He denies chest pain and short of breath. He has ambulated in the room without difficulty. He is hungry for breakfast. Patient had a cardiac cath yesterday with the following results: IMPRESSION Critical dominant right coronary disease as described above Successful stenting of the proximal mid and distal dominant right coronary critical disease reduced to 0% with 3 drug-eluting stents placed in a contiguous manner Severe disease in the large first obtuse marginal artery Successful stenting the first obtuse marginal artery severe disease reduced to 0% with 1 drug-eluting stent Moderate to severe edge stenosis in the mid LAD Successful stenting of the mid LAD moderate to severe disease reduced to 0% with 1 drug-eluting stent Preserved ejection fraction Mildly elevated LVEDP PLAN 1. Brilinta 90 twice daily plus aspirin 81 mg daily 2. Beta-blockers and SARAH inhibitors 3. LDL less than 55 to be achieved with high intensity statin 4. Cardiac rehabilitation 5. Avoidance of tobacco products He has been seen by cardiology this morning with the following plan: 1. patient was admitted with unstable angina. Patient did undergo left heart catheterization yesterday which revealed successful stenting to the proximal mid and distal dominant RCA with 3 drug-eluting stents, severe disease in the large first obtuse marginal artery, successful stenting in the first obtuse marginal artery severe disease with 1 drug-eluting stent, moderate to severe edge stenosis in the mid LAD, successful stenting of the mid LAD moderate to severe disease reduced to 0% with 1 drug-eluting stent. Preserved EF with mildly elevated LVEDP. Patient was started on Brilinta 90 mg twice daily along with aspirin 81 mg daily. Patient is currently on beta-lina and an SARAH inhibitor was started last evening. Denies chest pain, tightness or pressure. Denies shortness of breath. 2. Echocardiogram revealed EF 55% with no regional wall motion abnormality. Mild MR TR noted. 3. History of hyperlipidemia. Patient states he is unable to tolerate statins due to muscle cramps. Will discuss Repatha at cardiology appointment in 1 week. LDL goal<55. 4. History of essential hypertension. Stable 5. Will discuss cardiac rehab due to post stenting at cardiology appointment. 6. Encourage weight loss and exercise. 7. Instructions were given to patient regarding no strenuous activity or heavy lifting until follow-up with cardiology in 1 week. 8. Patient is to follow-up with cardiology in 1 week or sooner if signs and symptoms develop. Laboratory data this morning with a CBC which is satisfactory with a hemoglobin of 13.6 and hematocrit of 42.6. Exam Vital signs and Labs for Last 24 Hours: Temp Pulse Resp BP Pulse Ox 97.8 F 56 L 20 127/80 96 09/17/20 04:00 09/17/20 04:00 09/17/20 04:00 09/17/20 04:00 09/17/20 04:00 Laboratory Results - last 24 hr 09/16/20 12:38: Activated Clotting Time 385 H* 09/16/20 12:50: Activated Clotting Time 271 H* D 09/17/20 07:03: WBC 5.7, RBC 4.71, Hgb 13.6 L, Hct 42.6, MCV 90.4, MCH 28.9, MCHC 32.0, RDW 13.6, Plt Count 164, MPV 7.4, Neut % (Auto) 64.3, Lymph % (Auto) 24.9, Todd % (Auto) 6.7, Eos % (Auto) 3.5, Baso % (Auto) 0.5, Neut # (Auto) 3.7, Lymph # (Auto) 1.4, Todd # (Auto) 0.4, Eos # (Auto) 0.2, Baso # (Auto) 0.0 I & O for Last 24 hours: Intake & Output 09/14/20 09/15/20 09/16/20 09/17/20 11:59 11:59 11:59 11:59 Intake Total 1240 / 1240 1534 / 1534 720 / 720 Balance 1240 / 1240 1534 / 1534 720 / 720 Weight 219 lb 2 oz 218 lb 11.2 oz 215 lb - Constitutional no acute distress Comments: Sitting comfortable in chair in the room. - *Routine Respiratory Exam Present: CTA bilaterally (Anteriorly and posteriorly) - *Routine Cardiovascular Exam Present: RRR - *Routine Abdominal Exam P
--- NOTE | 2020-09-17 09:52 | HMH.PHACLD ---
Kevin Manriquez has received discharge medication counseling on the following medications: MD DISCHARGED PATIENT WITH BRILINTA 90 MG BID, ASPIRIN 81 MG DAILY, LISINOPRIL 5 MG DAILY, CRESTOR 20 MG HS, AND ATENOLOL 50 MG DAILY.
--- NOTE | 2020-09-23 22:25 | HMH.DCSUM ---
General - General Admission date:: 09/15/20 Discharge date: 09/17/20 HPI HPI: 75 y.o. was admitted last night via ER with impression of unstable angina and non-STEMI. He has a history of CAD with stents placed circa 2008 in [facility]. He describes chest discomfort over the past several days, exertional. He describes pain in a band-like distribution across the chest with radiation to the arms. No vomiting, no diaphoresis, but similar to previous episode that led to stenting. Was treated in the ER with relief of symptoms. ER spoke with Dr. Dorsey who recommended admission. Will likely receive cardiac catheterization in AM. Strong family history of heart disease (Mother). Patient never smoked. Hospital Course Hospital Course: The patient refused to take atorvastatin due to myalgias. He also refused Lasix until Dr. Cheung showed him the edema that was present in his legs. Dr. Cheung spoke with Dr. Dorsey and the patient was continued on Lovenox in addition to his Brilinta. Baby aspirin was also ordered. His EKG showed flipped T waves in 2 3 and aVF as well as V4 5 and 6 with poor R wave progression anteriorly. Cardiology saw the patient and performed a cardiac cath. The patient received numerous stents. He was started on Brilinta 90 mg twice daily as well as aspirin 81 mg daily. Cardiology did discuss the possibility of Repatha due to his intolerance to statins. The patient denied any chest pain or shortness of breath and was able to ambulate in his room without any difficulty by 09/17/2020. He was stable to be discharged home and will follow up with cardiology in 1 week. Objective Vital signs: Temp Pulse Resp BP Pulse Ox 97.7 F 59 L 16 135/78 97 09/17/20 08:00 09/17/20 08:00 09/17/20 08:00 09/17/20 08:00 09/17/20 08:00 Narrative: - Constitutional no acute distress (comfortable at time of exam) - *Routine HEENT Exam Head: Present: normocephalic Eye: Present: PERRL ENT: Present: mucous membranes moist - *Routine Neck Exam Present: supple, full ROM. Absent: JVD, carotid bruit - Routine Chest/Breast/Axilla Exam Chest wall: Absent: tenderness (normal configuration) - *Routine Respiratory Exam Present: CTA bilaterally - *Routine Cardiovascular Exam Present: RRR, other (heart sounds are distant) - *Routine Abdominal Exam Present: soft. Absent: tenderness, mass - *Routine Rectal Exam Rectal:: deferred - *Routine Genitalia Exam Genitalia:: deferred - *Routine Extremities Exam Present: edema (2+) - *Routine Skin Exam Present: intact, warm, normal turgor. Absent: lesions, jaundice - *Routine Neurological Exam Present: alert, oriented X3 - Routine Psychiatric Exam Present: normal affect. Absent: agitated DS: Diagnosis - Discharge Diagnosis (1) Non-ST elevated myocardial infarction (non-STEMI) Status: Acute (2) Unstable angina pectoris Status: Acute (3) Coronary artery disease Status: Acute (4) History of heart artery stent Status: Acute (5) Obesity (BMI 30.0-34.9) Status: Acute (6) Stented coronary artery Status: Acute Discharge Plan - Patient Discharge Instructions ACTIVITY: Limited activity, No heavy lifting DIET: low fat, low cholesterol Patient Instructions: Heart Attack, DI for Angina, DI for Cardiac Catheterization, DI for Surgical Site Infection - Follow up Plan Follow up with: Herrera Ramirez MD [Primary Care Provider] - 09/24/20 11:00 am Deven Dorsey MD [Staff Physician] - 09/25/20 8:30 am Unknown provider or service follow up:: 09/17/20 08:[address] Ramirez in 10 days. Disposition: Home, Self-Care Condition at discharge:: Improved Home Medications: Home Medications Medication Instructions Recorded Confirmed Type Finasteride [Proscar] 5 mg PO DAILY 09/14/20 09/14/20 History atenoloL [Atenolol 50mg Tab] 50 mg PO DAILY 09/14/20 09/14/20 History Aspirin [Aspirin 81mg EC Tab]
== END 2020-09-17 11:25 | disposition home or self-care (01) ==
LOC: ER 22:36 → 2ND 23:47
PROVIDERS: Internal Medicine; Admitting Provider Family Medicine; Emergency Provider Emergency Medicine; PCP Family Medicine; Visit Provider Family Medicine
DX: I21.4 Non-ST elevation (NSTEMI) myocardial infarction (principal); I25.110 Atherosclerotic heart disease of native coronary artery with unstable angina pectoris; Z95.5 Presence of coronary angioplasty implant and graft; I10 Essential (primary) hypertension; Z82.49 Family history of ischemic heart disease and other diseases of the circulatory system; Z79.899 Other long term (current) drug therapy; Z20.822 Contact with and (suspected) exposure to COVID-19
CPT/HCPCS: 36415; 71046; 74177; 80048; 80053; 80061; 82150; 82550; 82553; 83690; 83735; 84145; 84484; 85025; 85347; 85651; 86140; 92928; 92929; 93005; 93306; 93458; 96365; 96375; 99152; 99153; 99285; C1725; C1769; C1874; C1876; C9600; C9601; G0378; J1644; J2405; Q9967; U0003

== ENCOUNTER → 2020-09-24 12:10 | Outpatient (CLI) | payer MEDICARE, OTHER, SELFPAY ==
[2020-09-24 12:33] LABS: Hematocrit 45.3 % (42.0-52.0)
[2020-09-24 13:30] LABS: Blood Urea Nitrogen 18 mg/dl (9-20); Estimated Glomerular Filt Rate 82 ml/min (>60); GFR (African American) 100 ML/MIN (>60)
== END ==
PROVIDERS: Visit Provider Internal Medicine
DX: I25.10 Atherosclerotic heart disease of native coronary artery without angina pectoris (principal)
CPT/HCPCS: 36415; 82565; 84520; 85014; 85018

== ENCOUNTER → 2020-11-06 12:02 | Outpatient (CLI) | payer MEDICARE, OTHER, SELFPAY ==
[2020-11-06 13:07] LABS: Alanine Aminotransferase 22 U/L (12-78); Albumin Level 3.9 g/dl (3.5-5.0); Alkaline Phosphatase 65 U/L (38-126); Aspartate Amino Transferase 30 U/L (17-59); Bilirubin,Direct 0.1 mg/dl (0.0-0.4); Bilirubin,Indirect 0.6 mg/dL (0.0-0.9); Bilirubin,Total 0.7 mg/dl (0.2-1.3); Bilirubin,Unconjugated 0.6 mg/dL (0.0-1.1); Chol/HDL Ratio 3.6 (1-3.5); Cholesterol 133 mg/dl (140-200); HDL Cholesterol 37 mg/dl (40-60); Total Protein,Serum 6.4 g/dl (6.3-8.2); Triglycerides 218 mg/dl (30-150); VLDL Cholesterol 44 mg/dL (0-40)
[2020-11-06 13:18] LABS: Direct LDL Cholesterol 64.43 mg/dL (100-129)
== END ==
PROVIDERS: Visit Provider Urology
DX: E66.9 Obesity, unspecified (principal); E78.5 Hyperlipidemia, unspecified; I10 Essential (primary) hypertension; I21.4 Non-ST elevation (NSTEMI) myocardial infarction; I25.10 Atherosclerotic heart disease of native coronary artery without angina pectoris; Z95.5 Presence of coronary angioplasty implant and graft; Z68.30 Body mass index [BMI] 30.0-30.9, adult
CPT/HCPCS: 36415; 80061; 80076

== ENCOUNTER → 2021-08-05 14:29 | Outpatient (CLI) | payer MEDICARE, OTHER, SELFPAY ==
[2021-08-05 14:56] LABS: Basophils # 0.1 K/mm3 (0-0.2); Basophils % 1.3 % (0.1-2.0); Eosinophils # 0.2 K/mm3 (0.0-0.4); Hematocrit 49.3 % (42.0-52.0); Hemoglobin 16.4 g/dL (14.1-18.0); Lymphocytes # 1.9 K/mm3 (0.7-4.5); Lymphocytes % 28.2 % (10-50); Mean Corpuscular HGB Conc 33.3 g/dL (31.8-35.4); Mean Corpuscular Hemoglobin 30.6 pg (27.0-31.2); Mean Corpuscular Volume 92.1 fl (80-94); Mean Platelet Volume 8.7 fl (7.4-10.4); Monocytes # 0.3 K/mm3 (0.1-1.0); Neutrophils # 4.3 K/mm3 (1.8-7.8); Neutrophils % 62.5 % (37.0-80.0); Platelet Count 213 K/mm3 (142-424); Red Blood Count 5.36 M/mm3 (4.60-6.20); Red Cell Distribution Width 14.5 % (11.5-17.5); White Blood Count 6.8 K/mm3 (4.8-10.8)
[2021-08-05 15:30] LABS: Alanine Aminotransferase 23 U/L (12-78); Albumin Level 4.2 g/dl (3.5-5.0); Alkaline Phosphatase 58 U/L (38-126); Anion Gap 9.4 mEq/L (5-15); Aspartate Amino Transferase 32 U/L (17-59); Bilirubin,Indirect 0.7 mg/dL (0.0-0.9); Bilirubin,Total 0.7 mg/dl (0.2-1.3); Bilirubin,Unconjugated 0.8 mg/dL (0.0-1.1); Blood Urea Nitrogen 17 mg/dl (9-20); Calcium 9.5 mg/dl (8.4-10.2); Carbon Dioxide 31 mmol/L (22.0-30.0); Chloride 104 mmol/L (98-107); Chol/HDL Ratio 7.8 (1-3.5); Cholesterol 264 mg/dl (140-200); Estimated Glomerular Filt Rate 65 ml/min (>60); GFR (African American) 79 ML/MIN (>60); Glucose 99 mg/dl (74-100); HDL Cholesterol 34 mg/dl (40-60); Potassium 4.4 mmoL/L (3.5-5.1); Sodium 140 mmol/L (136-145); Total Protein,Serum 6.8 g/dl (6.3-8.2); Triglycerides 311 mg/dl (30-150); Uric Acid 7.1 mg/dl (3.5-8.5); VLDL Cholesterol 62 mg/dL (0-40)
[2021-08-05 15:41] LABS: C-Reactive Protein 2.8 mg/L (0-4); Direct LDL Cholesterol 147.85 mg/dL (100-129); Erythrocyte Sedimentation Rate 12 mm/hr (0-20)
[2021-08-05 15:46] LABS: Free T4 (Free Thyroxine) 1.25 ng/dl (0.78-2.19)
[2021-08-05 16:00] LABS: Thyroid Stimulating Hormone 1.91 uIU/mL (0.465-4.68)
[2021-08-07 14:20] LABS: Anti-Centromere B Antibodies <0.2 AI (0.0-0.9); Anti-DNA (DS) Ab Qn <1 IU/mL (0-9); Anti-Jo-1 <0.2 AI (0.0-0.9); Anti-Smith Antibody <0.2 AI (0.0-0.9); Antichromatin Antibodies <0.2 AI (0.0-0.9); Antiscleroderma-70 Antibodies <0.2 AI (0.0-0.9); RNP Antibodies <0.2 AI (0.0-0.9); Sjogren's Anti-SS-A <0.2 AI (0.0-0.9); Sjogren's Anti-SS-B <0.2 AI (0.0-0.9)
[2021-08-08 09:30] LABS: Antinuclear Antibodies, IFA Negative (.)
== END ==
PROVIDERS: Visit Provider Nurse Practitioner Family
DX: E66.9 Obesity, unspecified (principal); E78.2 Mixed hyperlipidemia; I25.10 Atherosclerotic heart disease of native coronary artery without angina pectoris; L29.9 Pruritus, unspecified; Z95.5 Presence of coronary angioplasty implant and graft; I11.9 Hypertensive heart disease without heart failure; I63.9 Cerebral infarction, unspecified; R06.00 Dyspnea, unspecified; E11.9 Type 2 diabetes mellitus without complications; Z68.31 Body mass index [BMI] 31.0-31.9, adult
CPT/HCPCS: 36415; 80048; 80061; 80076; 84439; 84443; 84550; 85025; 85651; 86038; 86140; 86225; 86235; 86431

== ENCOUNTER → 2022-04-16 14:26 | Outpatient (CLI) | payer MEDICARE, SELFPAY ==
[2022-04-16 15:26] LABS: Basophils # 0.1 K/mm3 (0-0.2); Basophils % 1.1 % (0.1-2.0); Eosinophils # 0.2 K/mm3 (0.0-0.4); Eosinophils % 3.4 % (0.1-12.0); Lymphocytes # 1.8 K/mm3 (0.7-4.5); Lymphocytes % 25.6 % (10-50); Mean Corpuscular HGB Conc 32.6 g/dL (31.8-35.4); Mean Corpuscular Hemoglobin 30.1 pg (27.0-31.2); Mean Corpuscular Volume 92.3 fl (80-94); Mean Platelet Volume 8.3 fl (7.4-10.4); Monocytes # 0.5 K/mm3 (0.1-1.0); Monocytes % 6.5 % (1.7-9.3); Neutrophils # 4.4 K/mm3 (1.8-7.8); Neutrophils % 63.3 % (37.0-80.0); Platelet Count 187 K/mm3 (142-424); Red Blood Count 5.31 M/mm3 (4.60-6.20); Red Cell Distribution Width 14.3 % (11.5-17.5); White Blood Count 6.9 K/mm3 (4.8-10.8)
[2022-04-16 15:49] LABS: Alanine Aminotransferase 24 U/L (12-78); Albumin Level 4.2 g/dl (3.5-5.0); Alkaline Phosphatase 60 U/L (38-126); Anion Gap 5.1 mEq/L (5-15); Aspartate Amino Transferase 29 U/L (17-59); Bilirubin,Direct 0.3 mg/dl (0.0-0.4); Bilirubin,Indirect 0.6 mg/dL (0.0-0.9); Bilirubin,Total 0.9 mg/dl (0.2-1.3); Bilirubin,Unconjugated 0.7 mg/dL (0.0-1.1); Blood Urea Nitrogen 22 mg/dl (9-20); Calcium 8.9 mg/dl (8.4-10.2); Carbon Dioxide 30 mmol/L (22.0-30.0); Chloride 107 mmol/L (98-107); Chol/HDL Ratio 2.5 (1-3.5); Cholesterol 103 mg/dl (140-200); Estimated Glomerular Filt Rate 65 ml/min (>60); GFR (African American) 79 ML/MIN (>60); Glucose 92 mg/dl (74-100); HDL Cholesterol 42 mg/dl (40-60); Potassium 4.1 mmoL/L (3.5-5.1); Sodium 138 mmol/L (136-145); Total Protein,Serum 6.5 g/dl (6.3-8.2); Triglycerides 237 mg/dl (30-150); VLDL Cholesterol 47 mg/dL (0-40)
[2022-04-16 16:00] LABS: Direct LDL Cholesterol 37.53 mg/dL (100-129)
[2022-04-16 16:06] LABS: Free T4 (Free Thyroxine) 1.13 ng/dl (0.78-2.19)
[2022-04-16 16:21] LABS: Thyroid Stimulating Hormone 1.65 uIU/mL (0.465-4.68)
== END ==
PROVIDERS: PCP Family Medicine; Visit Provider Nurse Practitioner
DX: E66.9 Obesity, unspecified (principal); E78.2 Mixed hyperlipidemia; I10 Essential (primary) hypertension; I21.4 Non-ST elevation (NSTEMI) myocardial infarction; I25.10 Atherosclerotic heart disease of native coronary artery without angina pectoris; Z95.5 Presence of coronary angioplasty implant and graft; I63.9 Cerebral infarction, unspecified; R53.83 Other fatigue; R06.00 Dyspnea, unspecified; Z68.32 Body mass index [BMI] 32.0-32.9, adult
CPT/HCPCS: 36415; 80048; 80061; 80076; 84439; 84443; 85025

== ENCOUNTER 2022-04-30 17:19 | Observation (INO) | payer MEDICARE, SELFPAY ==
[2022-04-30] VITALS (12 sets, daily range): BP systolic 141–196; BP diastolic 75–102; PULSE 64–80; RESP 15–22; TEMP 36.6–36.8; O2SAT 93–98; BMI 31.7; BMI 31.5
--- NOTE | 2022-04-30 17:19 | ECG_ITS ---
APPROVED REPORT Exam: Resting ECG HR:71 bpm ECG Measurements Heart Rate 71 AXES OR 184 P 42 QRSd 98 QRS -26 QT 380 T 58 QTc 403 Conclusion SINUS RHYTHM WITH SINUS ARRHYTHMIA Old anterior and inferior changes ABNORMAL ECG UNCONFIRMED REPORT Electronically signed by : Robert Betts MD 05/01/2022 08:10:34
--- NOTE | 2022-04-30 17:20 | PC.NURSE ---
sent covid swab to lab
--- NOTE | 2022-04-30 17:29 | HMH.EDGENADL ---
Discharge Plan Disposition Patient Disposition: Admitted as Observation Condition: Good Prescriptions Prescriptions: No Action aspirin [Adult Aspirin Regimen] 81 mg tablet,delayed release (DR/EC) 81 mg PO DAILY Qty: 30 5RF atenolol 25 mg tablet 25 mg PO BID Qty: 180 3RF Rx Instructions: 25 mg PO twice a day; Repatha SureClick 140 mg/mL pen injector 140 mg SQ Q2W Qty: 2 5RF finasteride 5 mg tablet See Rx Instructions .ROUTE .COMPLEX Qty: 90 1RF Dose Instruction: TAKE 1 TABLET BY MOUTH EVERY DAY Rx Instructions: TAKE 1 TABLET BY MOUTH EVERY DAY coenzyme Q10 200 MG capsule 200 mg PO DAILY Qty: 120 0RF Referrals Follow up/Referrals: Sarah Richard MD [Primary Care Provider] - See instructions Clinical Impressions Clinical Impression: Anginal equivalent, Hypertension Discharge ED Provider: Elver Moncada General Adult HPI General Chief complaint: Recheck/Abnormal Lab/Rx Stated complaint: chest pain Time Seen by Provider: 04/30/22 18:00 History of Present Illness HPI narrative: History obtained from patient and , is a nurse. He has not felt well for a couple of months. He gets episodes where he feels a sense of anxiety and he feels off. When these episodes occur his blood pressure is markedly elevated. He does not get chest pain, but states that he has had stents placed twice and has had an PR and has never had chest pain with any of those events. He says that the sensation that he is getting now is similar to what he has had in the past from heart problems. He also also had some abdominal bloating and has felt like he has had a stomach virus. He has been seen in cardiology clinic here and has been scheduled for an echocardiogram and a stress test which are supposed to be performed tomorrow. He had another episode today and his blood pressure was markedly elevated at 190/102. 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 [place] she felt he needed to come into the hospital. She called Dr. Dorsey's office and she says she was told to bring him straight to the emergency room. Related Data Previous Rx's Medication Instructions Recorded coenzyme Q10 200 mg capsule 200 mg PO DAILY #120 caps 09/17/20 aspirin 81 mg tablet,delayed 81 mg PO DAILY #30 tabs 09/04/21 release (Adult Aspirin Regimen) atenolol 25 mg tablet 25 mg PO BID #180 tabs 11/10/21 evolocumab 140 mg/mL subcutaneous 140 mg SQ Q2W #2 mL 03/20/22 pen injector (Lamar Das) finasteride 5 mg tablet See Rx Instructions .Route 03/24/22 .COMPLEX #90 tabs Allergies Allergy/AdvReac Type Severity Reaction Status Date / Time atorvastatin AdvReac Intermediate myalgia Verified 04/16/22 13:59 lisinopril AdvReac cough Verified 04/16/22 13:59 rosuvastatin AdvReac cramping, Verified 04/16/22 13:59 ache feelling PFSH PFS Disclaimer: The information contained in this section may have been updated after the patient was seen, as this information can be updated by other users. Social History Smoking Status: Never smoker alcohol intake: never substance use type: denies use current occupational status: retired Travel in the last 8 weeks: Inside the [place] household members: spouse housing: house ROS Obtained: Yes Systems reviewed as appropriate & no additional complaints except as documented Constitutional Constitutional: Reports as per HPI, Denies fever(s), Denies headache(s) and Denies weakness ENT Ears, Nose, Mouth, and Throat: Denies headache(s), Denies nasal discharge and Denies sore throat Cardiovascular Cardiovascular: Denies chest pain Respiratory Respiratory: Denies shortness of breath and Denies cough Gastrointestinal Gastrointestingal: Reports bloating; Denies abdominal pain, constipation, diarr
--- NOTE | 2022-04-30 18:04 | XR_ITS ---
PROCEDURE INFORMATION: Exam: XR Chest Exam date and time: 04/30/2022 6:34 PM Age: 76 years old Clinical indication: Pain; Chest pressure; Prior surgery; Surgery date: 6+ months; Surgery type: Heart stents; Additional info: Chest pain TECHNIQUE: Imaging protocol: Radiologic exam of the chest. Views: 1 view. COMPARISON: CR XR CHEST 2V 09/14/2020 9:11 PM FINDINGS: Lungs: Unremarkable. No consolidation. Pleural spaces: Unremarkable. No pleural effusion. No pneumothorax. Heart/Mediastinum: Unremarkable. No cardiomegaly. Bones/joints: Unremarkable. IMPRESSION: No acute findings.
[2022-04-30 18:15] LABS: Chloride 104 mmol/L (98-107); Potassium 3.9 mmoL/L (3.5-5.1); Sodium 140 mmol/L (136-145)
--- NOTE | 2022-04-30 18:15 | PC.NURSE ---
rounded on pt no complaints at this timer, at bs
[2022-04-30 18:18] LABS: Anion Gap 10.9 mEq/L (5-15); Blood Urea Nitrogen 30 mg/dl (9-20); Calcium 8.8 mg/dl (8.4-10.2); Carbon Dioxide 29 mmol/L (22.0-30.0); Creatinine Clearance Estimated 81 mL/min (50-200); Estimated Glomerular Filt Rate 65 ml/min (>60); GFR (African American) 79 ML/MIN (>60); Glucose 123 mg/dl (74-100)
[2022-04-30 18:20] LABS: Coronavirus 19, PCR Not Detected (NotDetected); Influenza A, PCR Not Detected (NotDetected); Influenza B, PCR Not Detected (NotDetected)
[2022-04-30 18:25] LABS: Basophils # 0.1 K/mm3 (0-0.2); Basophils % 1.6 % (0.1-2.0); Eosinophils # 0.2 K/mm3 (0.0-0.4); Eosinophils % 2.5 % (0.1-12.0); Hematocrit 48.6 % (42.0-52.0); Hemoglobin 16.2 g/dL (14.1-18.0); Lymphocytes # 1.6 K/mm3 (0.7-4.5); Lymphocytes % 21.9 % (10-50); Mean Corpuscular HGB Conc 33.3 g/dL (31.8-35.4); Mean Platelet Volume 8.2 fl (7.4-10.4); Monocytes # 0.4 K/mm3 (0.1-1.0); Monocytes % 5.9 % (1.7-9.3); Neutrophils # 4.9 K/mm3 (1.8-7.8); Neutrophils % 68.1 % (37.0-80.0); Platelet Count 211 K/mm3 (142-424); White Blood Count 7.2 K/mm3 (4.8-10.8)
[2022-04-30 18:34] LABS: Troponin I < 0.01 ng/ml (0.00-0.034)
--- NOTE | 2022-04-30 20:20 | PC.NURSE ---
dry color tester at bedside
--- NOTE | 2022-04-30 20:21 | PC.NURSE ---
Patient admitted to 212 to service of with dx of angina equivalent.
--- NOTE | 2022-04-30 20:26 | EXP.HP ---
History of Present Illness *Admission Date: 04/30/22 *Reason for visit:: Elevated Blood pressures, Dizziness, Fatigue, SOA, Forgetfulness *History of present illness: Mr. Manriquez is a 76-year-old male with a past medical history of CAD with PCI x 5 in 2020 and PCI x 2 in 2008, BPH, HTN. He presents to [facility] through the ER due to a 3-month period of fatigue, irritability, shortness of air, on and off angioedema, forgetfulness and dizziness. He reports that he initially felt like he had a viral illness and has went to see his PCP. He had an appointment with his Art Consultant on 05/01 and was scheduled for a stress test and echo, because a lot of his symptoms are similar to prior symptoms when he underwent PCI. He reports that his symptoms were severe today and at home prior to coming to the ER his blood pressure was 197/102 so he came into the ER for evaluation. In the ER, EKG showed NSR with HR [address] segment elevation or depression. Troponin was <0.01. Cxray showed no acute cardiopulmonary findings. CBC and CMP were unremarkable. Vitals in the ER on presentation were: BP 196/102 that improved to 164/94 with no treatment, oxygen was 94-98/RA. The patient will be admitted with initial impression: HTN with questionable Anginal Equivalent, we will work through differentials. Cardiology will be consulted to see the patient. The plan of care was discussed with the patient and at bedside, both verbalized understanding and agreement with the plan of care. [facility] Disclaimer: The information contained in this section may have been updated after the patient was seen, as this information can be updated by other users. Medical History (Updated 04/30/22 @ 21:36 by Yolanda Khan RN) BPH (benign prostatic hyperplasia) CAD (coronary artery disease) Elevated HDL HTN (hypertension) Surgical History (Updated 04/30/22 @ 21:36 by Yolanda Khan RN) History of cardiac cath History of cholecystectomy Hx of appendectomy Hx of heart artery stent Family History (Updated 04/30/22 @ 21:38 by Yolanda Khan RN) Liver cancer Mother Heart disease Mother Sister Hypertension Mother Sister Social History (Updated 04/30/22 @ 21:40 by oYlanda Khan RN) Smoking Status: Never smoker alcohol intake: never substance use type: denies use current occupational status: retired Travel in the last 8 weeks: Inside the [place] household members: spouse housing: house marital status: Review of Systems Review of Systems Review of systems:: pertinent systems reviewed and negative unless documented below Constitutional Constitutional: Reports body ache(s), Reports headache(s), Reports lethargy, Reports malaise and Reports weakness Eyes Eyes: Reports system reviewed and no additional complaints, except as documented ENT Ears, Nose, Mouth, and Throat: Reports system reviewed and no additional complaints, except as documented and Reports headache(s) *Cardiovascular Cardiovascular: Reports system reviewed and no additional complaints, except as documented and Reports dyspnea *Respiratory Respiratory: Reports cough and Reports dyspnea *Gastrointestinal Gastrointestinal: Reports system reviewed and no additional complaints, except as documented *Genitourinary Genitourinary: Reports system reviewed and no additional complaints, except as documented *Musculoskeletal Musculoskeletal: Reports muscle weakness and Reports myalgias Integumentary/Breasts Skin/Breast: Reports system reviewed and no additional complaints, except as documented *Neurologic Neurologic: Reports headache(s) and Reports weakness Psychiatric Psychiatric: Reports system reviewed and no additional complaints, except as documented Endocrine Endocrine: Reports system reviewed and no additional complaints, except as documented Hematologic/Lymphatic Hematologic/Lymphatic: Reports system reviewed and no additional complaints, except
[2022-04-30 20:54] LABS: Cholesterol 108 mg/dl (140-200); HDL Cholesterol 36 mg/dl (40-60); Triglycerides 160 mg/dl (30-150); VLDL Cholesterol 32 mg/dL (0-40)
--- NOTE | 2022-04-30 20:55 | PC.NURSE ---
AT 2044 RECEIVED REPORT FROM ED NURSE Clifton WYNN RN
[2022-04-30 21:05] LABS: Direct LDL Cholesterol 48.93 mg/dL (100-129)
--- NOTE | 2022-04-30 21:16 | PC.NURSE ---
Pt arrived via wheelchair @ 2109
[2022-04-30 21:18] LABS: Troponin I < 0.01 ng/ml (0.00-0.034)
[2022-04-30 21:27] LABS: Free T4 (Free Thyroxine) 1.53 ng/dl (0.78-2.19)
[2022-04-30 21:28] LABS: Thyroid Stimulating Hormone 2.07 uIU/mL (0.465-4.68)
--- NOTE | 2022-04-30 22:10 | PC.NURSE ---
ARRIVED TO THE FLOOR FROM THE ED AT 0 PER W/C.
[2022-05-01] VITALS (18 sets, daily range): BP systolic 110–141; BP diastolic 58–85; PULSE 55–74; RESP 14–18; TEMP 36.6–36.8; O2SAT 92–100; BMI 31.4
--- NOTE | 2022-05-01 | IR_ITS ---
APPROVED REPORT Patient Location: Inpatient Feature Writer: YANIV Crystal RT (R) PROCEDURES Left heart catheterization Left ventriculogram Selective coronary angiogram INDICATION Known coronary artery disease, Unstable angina, Informed consent was obtained prior to the procedure. COMPLICATIONS None Estimated Blood Loss: Less than 10 ml TECHNIQUE One percent lidocaine used to anesthetize the right anterior aspect of the wrist. The right radial artery was accessed via the Seldinger technique. A 6 Luxembourger sheath was placed in the right radial artery. 2.5 mg of verapamil, 800 mcg of nitroglycerin, 1mg Lidocaine and 5000 U Heparin were given through the arterial sheath. The papa catheter and JL 3 guide catheter were also used to perform left heart catheterization, left ventriculogram and selective coronary angiogram. At the end of the procedure the sheath was removed good hemostasis was achieved using Traclet band, patient was transferred to the postop holding area in stable condition. ANGIOGRAPHIC RESULTS The left main artery Normal The left anterior descending artery Has proximal 10 to 20% stenoses followed by a mid vessel LAD stent which is widely patent with minimal in-stent restenosis and excellent proximal distal transitioning The circumflex artery Nondominant with proximal 30 to 40% stenosis The right coronary artery Is a large dominant vessel with stents through the proximal mid and distal segment in a contiguous manner. The stent is widely patent free of in-stent restenosis with excellent proximal distal transitioning. A large posterior descending artery has a proximal eccentric 60% stenosis followed by mid vessel 90% tandem stenosis. The HERNADEZ ventriculogram reveals Normal 65% The left ventricular end-diastolic pressure 25 to 30 mmHg IMPRESSION Basically unchanged coronary artery disease from August 2020 which includes the severe stenosis in the posterior descending artery Normal ejection fraction Moderate to severely elevated LVEDP which is the likely etiology for patient's angina PLAN 1. While stenting is possible for the posterior descending artery there is been no change in the stenosis over the last 21 months. I remain in favor of treating this lesion medically unless recalcitrant angina occurs. 2. Patient is currently on 1 antianginal and I recommend maximizing antianginal medications with nitrates Ranexa and/or calcium channel blockers in combination with beta-blockers 3. Continue LDL goal LDL 55 to be achieved with high intensity statin 4. I would only stent the posterior descending artery in the event patient experiences recalcitrant angina pectoris Electronically signed by : Deven Dorsey MD 05/01/2022 12:09:20
[2022-05-01 00:38] LABS: Troponin I < 0.01 ng/ml (0.00-0.034)
--- NOTE | 2022-05-01 01:21 | PC.NURSE ---
PATIENT RECEIVED BENADRYL 25 MG PO TO HELP SLEEP. SAID HE WAS NERVOUS AND ANXIOUS. RESTING WELL AT THIS TIME. HAS BEEN NPO SINCE LA. CARDIOLOGY CONSULT PENDING.
[2022-05-01 06:57] LABS: Cholesterol 102 mg/dl (140-200); HDL Cholesterol 34 mg/dl (40-60); Triglycerides 149 mg/dl (30-150); VLDL Cholesterol 30 mg/dL (0-40)
[2022-05-01 07:18] LABS: Direct LDL Cholesterol 47.09 mg/dL (100-129)
--- NOTE | 2022-05-01 07:36 | HMH.PHAINT1 ---
Pharmacy Intervention Comments: HOME MEDICATION LIST VERIFIED USING LIST FROM OUTPATIENT PHARMACY AND LIST FROM MOST RECENT CARDIOLOGY OFFICE VISIT
--- NOTE | 2022-05-01 08:00 | CA_ITS ---
APPROVED REPORT EXAM: Comprehensive 2D, Doppler, and color-flow Echocardiogram Mdm Sr: Ariane Wu CRT Ht: 5 ft 10 in Wt: 218lbs BSA: 2.17 BP: 174/88 mmHg Indications: Chest Pain, Shortness of Breath, Fatigue, CAD, Hyperlipidemia, Hypertension/HDD, 7 stents 2D Dimensions LVOT 1.65 cm (M/F) 1.5-2.5 LA Volume 38.10 mL LA Volume Index 17.20 mL/m2 (M/F) 16-34 M-Mode Dimensions RVDd 2.98 cm (0.9-2.6) LA Diam 3.01 cm (1.9-4.0) LVDd 4.75 cm (3.5-5.7) Ao Diam 4.66 cm (2.0-3.7) LVDs 3.32 cm (3.5-5.7) IVSd 2.03 cm (0.6-1.1) PWd 0.68 cm (0.6-1.1) EF (Teich) 57.30% FS 30.10% EDV (Teich) 104.90 mL TAPSE 1.43 (<1.7) ESV (Teich) 44.80 mL LV Diastology E Decel Time 193.00 (160-240 msec) E/A Ratio 1.19 MED E' 6.80 (< 7 cm/sec) MED A' 12.00 cm/s E'/MED E' Ratio 15.24 (>14) LAT E' 5.30 (<10 cm/sec) LAT A' 11.70 cm/s E/LAT E' Ratio 19.55 (>14) Aortic Valve AO Peak GR. 5.00 mmHg Mitral Valve MV E Max Cuco. 104.00 (40-130 cm/s) MV A Velocity 87.00 (40-130 cm/s) E/A Ratio 1.19 MV Decel. Time 193.00 (160-240 ms) MV PHT 57.00 ms Pulmonary Valve PV Peak Velocity 87.00 (50-150 cm/s) Tricuspid Valve TR P. Velocity 203.00 cm/s RAP Estimate 10.00 mmHg RVSP 26.50 mmHg Left Ventricle Left atrium is mildly enlarged, left ventricle is normal size mild concentric left ventricular hypertrophy, estimated ejection fraction 55% with no regional wall motion abnormality, diastolic parameters are inconclusive. Right Ventricle Right atrium and right ventricle are mildly enlarged with normal contractility. Aortic Valve Aortic valve is minimally thickened and fibrosed there is no aortic stenosis aortic insufficiency. Mitral Valve Mitral valve is grossly normal, there is trace mitral regurgitation. Tricuspid Valve Tricuspid valve grossly normal, there is trace tricuspid regurgitation, tricuspid regurgitation jet plus is inadequate for calculation of the right ventricular systolic pressure. Pulmonic Valve Pulmonic valve is poorly visualized. Great Vessels Aortic root is normal size. Inferior vena cava is normal size with normal inspiratory collapse. Pericardium No significant pericardial effusion noted. Conclusion 1. Mild biatrial enlargement, normal left ventricular size, mild concentric left ventricular hypertrophy, estimated ejection fraction 55% with no regional wall motion abnormality, diastolic parameters are inconclusive. 2. Mildly enlarged right ventricle with normal contractility. 3. Trace mitral and tricuspid regurgitation. 4. No significant pericardial effusion. 5. Inferior vena cava is normal size with normal inspiratory collapse. Electronically signed by : Jorge Kapoor MD 05/01/2022 13:04:10
--- NOTE | 2022-05-01 10:45 | EXP.CARD.CON ---
History of Present Illness History of Present Illness Consult date: 05/01/22 Requesting physician: Norberto Powell Chief complaint: Fatigue and HTN History of present illness: Mr. Manriquez is a 76-year-old male with a past medical history of CAD with PCI x 5 in 2020 and PCI x 2 in 2008, BPH, HTN. He presents to [facility] through the ER due to a 3-month period of fatigue, irritability, shortness of air, on and off, forgetfulness and dizziness.? He reports that he initially felt like he had a viral illness and has went to see his PCP.? He had an appointment with his Rnfa on 05/01 and was scheduled for a stress test and echo, because a lot of his symptoms are similar to prior symptoms when he underwent PCI.? He reports that his symptoms were severe today and at home prior to coming to the ER his blood pressure was 197/102 so he came into the ER for evaluation. In the ER, EKG showed NSR with HR [address] segment elevation or depression.? Troponin was <0.01.? Cxray showed no acute cardiopulmonary findings.? CBC and CMP were unremarkable.? Vitals in the ER on presentation were:? BP 196/102 that improved to 164/94 with no treatment, oxygen was 94-98/RA. [facility] Disclaimer: The information contained in this section may have been updated after the patient was seen, as this information can be updated by other users. Medical History (Updated 04/30/22 @ 21:36 by Yolanda Khan RN) BPH (benign prostatic hyperplasia) CAD (coronary artery disease) Elevated HDL HTN (hypertension) Surgical History (Updated 04/30/22 @ 21:36 by Yolanda Khan RN) History of cardiac cath History of cholecystectomy Hx of appendectomy Hx of heart artery stent Family History (Updated 04/30/22 @ 21:38 by Yolanda Khan RN) Mother Liver cancer Heart disease Hypertension Sister Heart disease Hypertension Social History (Updated 04/30/22 @ 21:40 by Yolanda Khan RN) Smoking Status: Never smoker alcohol intake: never substance use type: denies use current occupational status: retired Travel in the last 8 weeks: [place] the [place] household members: spouse housing: house marital status: Review of Systems Constitutional Constitutional: Reports headache(s) and Reports weakness ENT Ears, Nose, Mouth, and Throat: Reports headache(s) *Musculoskeletal Musculoskeletal: Denies numbness *Neurologic Neurologic: Reports headache(s), Denies numbness and Reports weakness Exam Data for Last 24 hours Vital signs and Labs for Last 24 Hours: Temp Pulse Resp BP Pulse Ox 97.9 F 55 L 16 136/85 95 05/01/22 08:00 05/01/22 08:00 05/01/22 08:00 05/01/22 08:00 05/01/22 08:00 Laboratory Results - last 24 hr 04/30/22 17:24: WBC 7.2, RBC 5.40, Hgb 16.2, Hct 48.6, MCV 90.0, MCH 30.0, MCHC 33.3, RDW 14.0, Plt Count 211, MPV 8.2, Neut % (Auto) 68.1, Lymph % (Auto) 21.9, Edgar % (Auto) 5.9, Eos % (Auto) 2.5, Baso % (Auto) 1.6, Neut # (Auto) 4.9, Lymph # (Auto) 1.6, Edgar # (Auto) 0.4, Eos # (Auto) 0.2, Baso # (Auto) 0.1 04/30/22 17:24: Sodium 140, Potassium 3.9, Chloride 104, Carbon Dioxide 29, Anion Gap 10.9, BUN 30 H, Creatinine 1.10, Estimated Creat Clear 81, Estimated GFR 65, Est GFR ( Amer) 79, Glucose 123 H, Calcium 8.8, Troponin I < 0.01 04/30/22 17:54: SARS-CoV-2 (PCR) Not detected, Influenza A Untype (PCR) Not detected, Influenza Type B (PCR) Not detected 04/30/22 20:33: Troponin I < 0.01, TSH 2.07 04/30/22 20:33: Triglycerides 160 H, Cholesterol 108 L, LDL Cholesterol Direct 48.93 L, VLDL Cholesterol 32, HDL Cholesterol 36 L, Cholesterol/HDL Ratio 3.0 04/30/22 20:33: Free T4 1.53 05/01/22 00:08: Troponin I < 0.01 05/01/22 05:35: Triglycerides 149, Cholesterol 102 L, LDL Cholesterol Direct 47.09 L, VLDL Cholesterol 30, HDL Cholesterol 34 L, Cholesterol/HDL Ratio 3.0 I & O for Last 24 hours: Intake & Output 04/28/22 04/29/22 04/30/22 05/01/22 23:59 23:59 23:59 23:59 Intake Total 48
--- NOTE | 2022-05-01 12:26 | EXP.DC.SUM ---
General Admission date:: 04/30/22 Discharge date: 05/01/22 HPI HPI HPI: Mr. Manriquez is a 76-year-old male with a past medical history of CAD with PCI x 5 in 2020 and PCI x 2 in 2008, BPH, HTN. He presents to [facility] through the ER due to a 3-month period of fatigue, irritability, shortness of air, on and off angioedema, forgetfulness and dizziness. He reports that he initially felt like he had a viral illness and has went to see his PCP. He had an appointment with his Credit Historian on 05/01 and was scheduled for a stress test and echo, because a lot of his symptoms are similar to prior symptoms when he underwent PCI. He reports that his symptoms were severe today and at home prior to coming to the ER his blood pressure was 197/102 so he came into the ER for evaluation. In the ER, EKG showed NSR with HR [address] segment elevation or depression. Troponin was <0.01. Cxray showed no acute cardiopulmonary findings. CBC and CMP were unremarkable. Vitals in the ER on presentation were: BP 196/102 that improved to 164/94 with no treatment, oxygen was 94-98/RA. The patient will be admitted with initial impression: HTN with questionable Anginal Equivalent, we will work through differentials. Cardiology will be consulted to see the patient. The plan of care was discussed with the patient and at bedside, both verbalized understanding and agreement with the plan of care. Hospital Course Hospital Course Hospital Course: 76-year-old male with history of CAD s/p PCI in 2020 and 2008, BPH presents with multiple symptoms, reports similar symptoms in past with CAD - Anginal Equivalent - Hypertension Presented with multiple complaints over the past 3 months. Including fatigue, shortness of breath, Dizziness, Forgetfulness, irritability, HTN, angioedema. Similar symptoms occurred prior to his previous PCI 2 years ago. Patient and concerned for worsening coronary artery disease/blockage. Cardiology consulted. Patient was scheduled for stress test and echo as an outpatient, but due to symptoms ended up being admitted. Patient preferred to move forward with heart cath as his previous stress tests have been negative with findings of significant coronary artery disease. Taken to the Assistant Paralegal with the following finding: IMPRESSION Basically unchanged coronary artery disease from August 2020 which includes the severe stenosis in the posterior descending artery Normal ejection fraction Moderate to severely elevated LVEDP which is the likely etiology for patient's angina PLAN 1. While stenting is possible for the posterior descending artery there is been no change in the stenosis over the last 21 months.? I remain in favor of treating this lesion medically unless recalcitrant angina occurs. 2. Patient is currently on 1 antianginal and I recommend maximizing antianginal medications with nitrates Ranexa and/or calcium channel blockers in combination with beta-blockers 3. Continue LDL goal LDL 55 to be achieved with high intensity statin 4. I would only stent the posterior descending artery in the event patient experiences recalcitrant angina pectoris Patient medically stable to discharge home with close follow-up with cardiology. Of note echo obtained during admission, still pending formal read at discharge. Exam Data for Last 24 hours Vital signs and Labs for Last 24 Hours: Temp Pulse Resp BP Pulse Ox 97.9 F 61 18 135/72 95 05/01/22 08:00 05/01/22 12:05 05/01/22 12:05 05/01/22 12:05 05/01/22 12:05 Laboratory Results - last 24 hr 04/30/22 17:24: WBC 7.2, RBC 5.40, Hgb 16.2, Hct 48.6, MCV 90.0, MCH 30.0, MCHC 33.3, RDW 14.0, Plt Count 211, MPV 8.2, Neut % (Auto) 68.1, Lymph % (Auto) 21.9, Maverick % (Auto) 5.9, Eos % (Auto) 2.5, Baso % (Auto) 1.6, Neut # (Auto) 4.9, Lymph # (Auto) 1.6, Maverick # (Auto) 0.4, Eos # (Auto) 0.2, Baso # (Auto) 0.1 04/30/22 17:24: Sodium 140, Potassium 3.9, Chloride 104, Carbon Dioxide 29
--- NOTE | 2022-05-01 15:00 | HMH.PHAINT1 ---
Pharmacy Intervention Comments: DISCHARGE MEDICATION COUNSELING PROVIDED. DISCUSSED THERE WERE NO CHANGES TO CURRENT LIST AND PATIENT VERBALIZED NO QUESTIONS AT THIS TIME.
--- NOTE | 2022-05-05 14:21 | CARE MANAGER ---
Contacted patient related to hospital discharge. He states he is doing well and had no new medications. He is aware of his follow up appointment. Denies questions or concerns. MARIPOSA Avelar
== END 2022-05-01 16:33 | disposition home or self-care (01) ==
LOC: ER 20:07 → 2ND 22:34
PROVIDERS: Internal Medicine; Nurse Practitioner Family; Admitting Provider Internal Medicine Adolescent Medicine; Emergency Provider Emergency Medicine; PCP Family Medicine; Visit Provider Internal Medicine Adolescent Medicine
DX: I25.118 Atherosclerotic heart disease of native coronary artery with other forms of angina pectoris (principal); Z20.822 Contact with and (suspected) exposure to COVID-19; E78.2 Mixed hyperlipidemia; Z79.899 Other long term (current) drug therapy; Z95.5 Presence of coronary angioplasty implant and graft; I10 Essential (primary) hypertension; R06.02 Shortness of breath; I25.2 Old myocardial infarction
CPT/HCPCS: G0378; 36415; 71045; 80048; 80061; 84439; 84443; 84484; 85025; 93005; 93306; 93458; 99152; 99285; C1725; C1769; C9803; J1644; Q9967; U0003; U0005

== ENCOUNTER 2022-05-29 12:32 | Emergency (ER) | payer MEDICARE, SELFPAY ==
[2022-05-29 12:40] VITALS: BP 161/89; PULSE 68; O2SAT 97
[2022-05-29 12:53] VITALS: BP 161/89; PULSE 69; RESP 20; TEMP 36.8; O2SAT 97; BMI 31.0
[2022-05-29 13:01] VITALS: BP 165/90; PULSE 70; O2SAT 98
[2022-05-29 13:06] LABS: Microscopic, Urine URINE MICROSCOPIC (MICROSCOPIC)
[2022-05-29 13:11] LABS: Appearance,Urine CLEAR (Clear); Bilirubin,Urine Negative (Negative); Blood, Urine 3+ (Negative); Color,Urine RED (Yellow); Glucose,Urine (UA) Negative (Negative); Ketones,Urine Negative (Negative); Leukocyte Esterase,Urine TRACE (Negative); Nitrate,Urine Negative (Negative); Protein,Urine 2+ (Negative); Specific Gravity, Urine <= 1.005 (1.005-1.030); Urobilinogen,Urine 0.2 EU/dl (0.2)
--- NOTE | 2022-05-29 13:13 | PC.NURSE ---
spoke with dr godfrey who states he will come see the pt.
--- NOTE | 2022-05-29 13:17 | PC.NURSE ---
Willian at the bedside
[2022-05-29 13:21] LABS: Basophils # 0.1 K/mm3 (0-0.2); Basophils % 0.8 % (0.1-2.0); Eosinophils # 0.2 K/mm3 (0.0-0.4); Eosinophils % 2.8 % (0.1-12.0); Hematocrit 49.8 % (42.0-52.0); Hemoglobin 16.2 g/dL (14.1-18.0); Lymphocytes # 1.7 K/mm3 (0.7-4.5); Lymphocytes % 24.4 % (10-50); Mean Corpuscular HGB Conc 32.6 g/dL (31.8-35.4); Mean Corpuscular Hemoglobin 29.8 pg (27.0-31.2); Mean Corpuscular Volume 91.5 fl (80-94); Mean Platelet Volume 8.3 fl (7.4-10.4); Monocytes # 0.4 K/mm3 (0.1-1.0); Monocytes % 5.2 % (1.7-9.3); Neutrophils # 4.5 K/mm3 (1.8-7.8); Neutrophils % 66.7 % (37.0-80.0); Platelet Count 206 K/mm3 (142-424); Red Blood Count 5.44 M/mm3 (4.60-6.20); White Blood Count 6.8 K/mm3 (4.8-10.8)
[2022-05-29 13:23] LABS: Chloride 101 mmol/L (98-107); Potassium 4.2 mmoL/L (3.5-5.1); Sodium 140 mmol/L (136-145)
[2022-05-29 13:26] LABS: Alanine Aminotransferase 23 U/L (12-78); Albumin Level 4.5 g/dl (3.5-5.0); Albumin/Globulin Ratio 1.6 (1.1-1.8); Alkaline Phosphatase 55 U/L (38-126); Anion Gap 12.2 mEq/L (5-15); Aspartate Amino Transferase 30 U/L (17-59); Bilirubin,Total 0.7 mg/dl (0.2-1.3); Blood Urea Nitrogen 30 mg/dl (9-20); Calcium 9.3 mg/dl (8.4-10.2); Carbon Dioxide 31 mmol/L (22.0-30.0); Creatinine Clearance Estimated 61 mL/min (50-200); Estimated Glomerular Filt Rate 49 ml/min (>60); GFR (African American) 60 ML/MIN (>60); Globulin 2.9 g/dL (1.3-3.2); Glucose 100 mg/dl (74-100); Total Protein,Serum 7.4 g/dl (6.3-8.2)
--- NOTE | 2022-05-29 13:29 | US_ITS ---
FINAL REPORT CLINICAL HISTORY: hematuria COMPARISON: None FINDINGS: RENAL ULTRASOUND Ultrasound images of the kidneys were obtained. Limited images of the liver parenchyma demonstrates normal echogenicity. The right kidney measures 11.4 cm in length. There is a 2.3 cm benign-appearing cyst. There is no hydronephrosis. The left kidney measures 12.2 cm in length. It is normal echogenicity. There is no hydronephrosis. BLADDER ULTRASOUND Sonographic images of the bladder pre and postvoid were obtained. The urinary bladder is incompletely distended. There appears to be a mural intraluminal mass within the urinary bladder measuring 3.0 x 1.6 cm highly concerning for neoplasia. Prostate is enlarged. Prevoid volume: 252 mL Postvoid volume: 48 mL IMPRESSION: Intraluminal mass urinary bladder highly concerning for malignancy. Recommend urology evaluation and cystoscopy. Enlarged prostate with moderate postvoid residual. Reviewed, Interpreted and Dictated by Carlos Tilley MD Transcribed by Becka Bazzi Authenticated and [facility]
[2022-05-29 13:31] VITALS: BP 132/81; PULSE 65; O2SAT 96
[2022-05-29 13:31] LABS: Bacteria,Urine Trace /lpf; Squamous Epithelial Cell,Urine Occasional #/hpf (0-5); WBC,Urine Occasional #/hpf (0-3)
--- NOTE | 2022-05-29 13:37 | PC.NURSE ---
radiology came to pt to CT
--- NOTE | 2022-05-29 13:38 | HMH.EDGENADL ---
Discharge Plan Disposition Patient Disposition: Home, Self-Care Condition: Good Prescriptions Prescriptions: New losartan 100 mg tablet 100 mg PO DAILY Qty: 30 1RF Rx Instructions: Take each morning. chlorthalidone 50 mg tablet 50 mg PO DAILY Qty: 30 1RF Rx Instructions: Take each morning. ciprofloxacin HCl 500 mg tablet 500 mg PO BID 42 Days Qty: 84 0RF Discontinued valsartan-hydrochlorothiazide [Diovan HCT] 80-12.5 mg tablet 1 tab PO DAILY Qty: 30 2RF No Action finasteride 5 mg tablet 5 mg PO HS Repatha SureClick 140 mg/mL pen injector 140 mg SQ Q2W atenolol 25 mg tablet 25 mg PO BID aspirin [Adult Aspirin Regimen] 81 mg tablet,delayed release (DR/EC) 81 mg PO DAILY Referrals Follow up/Referrals: Sarah Richard MD [Primary Care Provider] - See instructions Sahil Akbar MD [Staff Physician] - 3 days Activity Restrictions/Add. Instructions Additional Instructions/Restrictions: You were evaluated in the emergency department today. Stop taking your valsartan?HCTZ at home. Please fish bait picker your prescriptions at the pharmacy, including losartan, chlorthalidone, and ciprofloxacin. Follow-up outpatient with Dr. Dorsey on Wednesday at 11 AM. We are also recommending outpatient follow-up with urology, as we are concerned you may have a mass on your bladder. We are providing you with contact information for Dr. Akbar, who is a urologist. Make sure that you orally hydrate. Return to the emergency department for any new or worsening symptoms, such as inability to urinate, significant pain, intractable nausea and vomiting, or other concerns. Clinical Impressions Clinical Impression: Creatinine elevation, Mass of urinary bladder Hematuria Qualifiers: Hematuria type: gross Qualified Code(s): R31.0 - Gross hematuria Instructions Patient Instructions: Acute Kidney Injury, DI for Hematuria Discharge ED Provider: Anahi Siddiqui General Adult HPI General Chief complaint: Urogenital-Male Stated complaint: blood in urine Time Seen by Provider: 05/29/22 12:42 Mode of Arrival: Ambulatory Source of Information: Patient Limitations: No Limitations Description of Symptoms (Recalled from ER Triage Doc. by RN): pt to ed c/o blood in urine. pt states he was recently started on valsartan by software engineering manager. pt denies burning with urination or urinary urgency. pt states he first noticed the blood x2 weeks ago but noticed increased blood yesterday. pt denies lower back or bad pain. History of Present Illness HPI narrative: This patient is a 76-year-old male with a history of CAD status post stenting, hypertension, hyperlipidemia, and obesity presenting to the emergency department for evaluation with concern for hematuria. He is not on any blood thinners but does take aspirin daily. He states that he has noticed blood in his urine intermittently for about a week, but it got acutely worse since yesterday. He has been drinking plenty of fluids to try and flush it out, however his urine was very dark this morning. He is not having any symptoms, such as flank pain, abdominal pain, frequency, urgency, dysuria, nausea, vomiting, or other concerns. He feels that he is still able to empty his bladder without issues. He states that he otherwise feels in his usual state of health except noting blood in his urine. He and his believe that this is related to the valsartan/HCTZ that he was started on by his software engineering manager for hypertension. His states that she read up on it and it can cause interstitial cystitis. No new changes noted as of late, and he denies any history of prostate or bladder issues in the past. Related Data Home Medications Medication Instructions Recorded Confirmed aspirin 81 mg tablet,delayed 81 mg PO DAILY Heart disease 04/30/22 05/25/22 release (Adult Aspirin Regimen) atenolol 25 mg tablet 25 mg PO BID High blood pressure 04/30/22 05/25/22 evolocu
[2022-05-29 13:39] LABS: Activated Partial Thrombo Time 27.4 seconds (22.8-30.6); INR 0.95 (0.9-1.1); Prothrombin Time 10.3 seconds (10.1-12.5)
--- NOTE | 2022-05-29 14:15 | PC.NURSE ---
pt is back from radiology
[2022-05-29 14:47] VITALS: BP 132/81; PULSE 65; RESP 20; TEMP 36.8; O2SAT 96
== END 2022-05-29 14:49 | disposition home or self-care (01) ==
PROVIDERS: Emergency Provider Emergency Medicine; PCP Family Medicine
DX: R31.0 Gross hematuria (principal); D49.4 Neoplasm of unspecified behavior of bladder; R79.89 Other specified abnormal findings of blood chemistry; N17.9 Acute kidney failure, unspecified; F17.210 Nicotine dependence, cigarettes, uncomplicated
CPT/HCPCS: 76770; 76857; 80053; 81001; 84153; 84154; 85025; 85610; 85730; 87086; 96360; 99285

== ENCOUNTER 2022-06-06 04:32 | Emergency (ER) | payer MEDICARE, SELFPAY ==
[2022-06-06 04:34] VITALS: BP 188/104; PULSE 80; RESP 16; TEMP 36.9; O2SAT 98; BMI 31.0
--- NOTE | 2022-06-06 04:38 | HMH.EDUROGM ---
Discharge Plan Disposition Patient Disposition: Home, Self-Care Prescriptions Prescriptions: No Action finasteride 5 mg tablet 5 mg PO HS Repatha SureClick 140 mg/mL pen injector 140 mg SQ Q2W atenolol 25 mg tablet 25 mg PO BID aspirin [Adult Aspirin Regimen] 81 mg tablet,delayed release (DR/EC) 81 mg PO DAILY losartan 100 mg tablet 100 mg PO DAILY Qty: 30 1RF Rx Instructions: Take each morning. chlorthalidone 50 mg tablet 50 mg PO DAILY Qty: 30 1RF Rx Instructions: Take each morning. ciprofloxacin HCl 500 mg tablet 500 mg PO BID 42 Days Qty: 84 0RF Referrals Follow up/Referrals: Sarah Richard MD [Primary Care Provider] - See instructions Activity Restrictions/Add. Instructions Additional Instructions/Restrictions: Follow-up with your urologist in about 3 days. Return to the emergency department immediately if you feel worse in any way. Take all medications as prescribed. Clinical Impressions Clinical Impression: Acute urinary retention Instructions Patient Instructions: DI for Urinary Retention in Men Discharge ED Provider: Tung Valera Male Urogenital HPI General Chief complaint: Urogenital-Male Stated complaint: 06/05/22 surgery procedure; can't urinate; pain Time Seen by Provider: 06/06/22 04:38 History of Present Illness HPI Narrative: The patient presents to the emergency department accompanied by his because he is unable to urinate. He had a transurethral resection of a bladder tumor yesterday afternoon. The last time he urinated was 10 PM last night. The patient states that it was a very small amount of bloody urine. He denies any fevers or other complaints. Related Data Home Medications Medication Instructions Recorded Confirmed aspirin 81 mg tablet,delayed 81 mg PO DAILY Heart disease 04/30/22 05/25/22 release (Adult Aspirin Regimen) atenolol 25 mg tablet 25 mg PO BID High blood pressure 04/30/22 05/25/22 evolocumab 140 mg/mL subcutaneous 140 mg SQ Q2W Cholesterol 04/30/22 05/25/22 pen injector (Repatha SureClick) finasteride 5 mg tablet 5 mg PO HS prostate 04/30/22 05/25/22 Previous Rx's Medication Instructions Recorded chlorthalidone 50 mg tablet 50 mg PO DAILY #30 tabs 05/29/22 ciprofloxacin HCl 500 mg tablet 500 mg PO BID 6 weeks #84 tabs 05/29/22 losartan 100 mg tablet 100 mg PO DAILY #30 tabs 05/29/22 Allergies Allergy/AdvReac Type Severity Reaction Status Date / Time atorvastatin AdvReac Intermediate myalgia Verified 05/25/22 13:34 lisinopril AdvReac cough Verified 05/25/22 13:34 rosuvastatin AdvReac cramping, Verified 05/25/22 13:34 ache feelling PFSH PFSH Disclaimer: The information contained in this section may have been updated after the patient was seen, as this information can be updated by other users. Medical History BPH (benign prostatic hyperplasia) CAD (coronary artery disease) Elevated HDL HTN (hypertension) Surgical History History of cardiac cath History of cholecystectomy Hx of appendectomy Hx of heart artery stent Family History Mother Liver cancer Heart disease Hypertension Sister Heart disease Hypertension Social History Smoking Status: Never smoker alcohol intake: never substance use type: denies use current occupational status: retired Travel in the last 8 weeks: Inside the [place] household members: spouse housing: house marital status: ROS Obtained: Yes All systems reviewed & no additional complaints except as documented Physical Exam General General appearance: alert Head Head exam: atraumatic Eye Eye exam: Present normal appearance ENT ENT exam: Present normal exam Neck Neck exam: Pr
--- NOTE | 2022-06-06 04:40 | PC.NURSE ---
Dr. Valera at
[2022-06-06 05:01] LABS: Appearance,Urine TURBID (Clear); Blood, Urine 3+ (Negative); Color,Urine RED (Yellow); Glucose,Urine (UA) Negative (Negative); Ketones,Urine TRACE (Negative); Leukocyte Esterase,Urine TRACE (Negative); Microscopic, Urine URINE MICROSCOPIC (MICROSCOPIC); Nitrate,Urine POSITIVE (Negative); PH,Urine 6.5 (5.0-8.5); Protein,Urine 3+ (Negative)
[2022-06-06 05:10] LABS: Bilirubin,Urine 1+ (Negative)
[2022-06-06 05:14] LABS: Bacteria,Urine 1+ /lpf; RBC,Urine TNTC #/hpf (0-3); Squamous Epithelial Cell,Urine Occasional #/hpf (0-5); WBC,Urine Occasional #/hpf (0-3)
[2022-06-06 05:18] VITALS: BP 116/80; PULSE 74; RESP 17; TEMP 36.9; O2SAT 98
== END 2022-06-06 05:24 | disposition home or self-care (01) ==
PROVIDERS: Emergency Provider Emergency Medicine; PCP Family Medicine
DX: R33.9 Retention of urine, unspecified (principal); N99.89 Other postprocedural complications and disorders of genitourinary system
CPT/HCPCS: 51702; 81001; 99283

== ENCOUNTER 2023-03-29 10:54 | Outpatient (CLI) | payer MEDICARE, SELFPAY ==
[2023-03-29 12:17] LABS: Free T4 (Free Thyroxine) 1.24 ng/dl (0.78-2.19)
== END 2023-03-29 23:59 ==
PROVIDERS: PCP Family Medicine; Visit Provider Nurse Practitioner
DX: R53.83 Other fatigue (principal)
CPT/HCPCS: 36415; 84439; 84443

== ENCOUNTER 2023-06-03 12:01 | Outpatient (CLI) | payer MEDICARE, SELFPAY ==
[2023-06-03 12:34] LABS: Basophils # 0.1 K/mm3 (0-0.2); Basophils % 0.8 % (0.1-2.0); Eosinophils # 0.2 K/mm3 (0.0-0.4); Eosinophils % 3.5 % (0.1-12.0); Hematocrit 46.8 % (42.0-52.0); Hemoglobin 15.4 g/dL (14.1-18.0); Lymphocytes # 1.7 K/mm3 (0.7-4.5); Lymphocytes % 28.4 % (10-50); Mean Corpuscular HGB Conc 32.8 g/dL (31.8-35.4); Mean Corpuscular Hemoglobin 30.7 pg (27.0-31.2); Mean Corpuscular Volume 93.6 fl (80-94); Mean Platelet Volume 7.2 fl (7.4-10.4); Monocytes # 0.4 K/mm3 (0.1-1.0); Monocytes % 5.9 % (1.7-9.3); Neutrophils # 3.8 K/mm3 (1.8-7.8); Neutrophils % 61.3 % (37.0-80.0); Platelet Count 200 K/mm3 (142-424); Red Cell Distribution Width 14.8 % (11.5-17.5); White Blood Count 6.1 K/mm3 (4.8-10.8)
[2023-06-03 14:14] LABS: Chloride 108 mmol/L (98-107); Sodium 141 mmol/L (136-145)
[2023-06-03 14:15] LABS: Potassium 4.1 mmoL/L (3.5-5.1)
[2023-06-03 14:17] LABS: Alanine Aminotransferase 22 U/L (12-78); Albumin Level 3.9 g/dl (3.5-5.0); Alkaline Phosphatase 65 U/L (38-126); Anion Gap 8.1 mEq/L (5-15); Aspartate Amino Transferase 27 U/L (17-59); Bilirubin,Direct 0.3 mg/dl (0.0-0.4); Bilirubin,Indirect 0.7 mg/dL (0.0-0.9); Bilirubin,Unconjugated 0.6 mg/dL (0.0-1.1); Blood Urea Nitrogen 21 mg/dl (9-20); Calcium 9.7 mg/dl (8.4-10.2); Carbon Dioxide 29 mmol/L (22.0-30.0); Cholesterol 127 mg/dl (140-200); Estimated Glomerular Filt Rate 65 ml/min (>60); GFR (African American) 79 ML/MIN (>60); Glucose 98 mg/dl (74-100); Magnesium 1.9 mg/dl (1.6-2.3); Total Protein,Serum 6.2 g/dl (6.3-8.2); Triglycerides 226 mg/dl (30-150); VLDL Cholesterol 45 mg/dL (0-40)
[2023-06-03 14:18] LABS: Chol/HDL Ratio 3.1 (1-3.5); HDL Cholesterol 41 mg/dl (40-60)
[2023-06-03 14:28] LABS: Direct LDL Cholesterol 51.96 mg/dL (100-129)
[2023-06-03 17:24] LABS: Thyroid Stimulating Hormone 1.55 uIU/mL (0.465-4.68)
== END 2023-06-03 23:59 | disposition home or self-care (01) ==
LOC: LAB 12:02
PROVIDERS: PCP Family Medicine; Visit Provider Physician Assistant
DX: I25.10 Atherosclerotic heart disease of native coronary artery without angina pectoris (principal); E78.2 Mixed hyperlipidemia; I10 Essential (primary) hypertension; Z95.5 Presence of coronary angioplasty implant and graft; E03.9 Hypothyroidism, unspecified; E66.9 Obesity, unspecified; Z68.32 Body mass index [BMI] 32.0-32.9, adult
CPT/HCPCS: 80048; 80061; 80076; 83735; 84439; 84443; 85025

== ENCOUNTER 2024-06-05 13:35 | Outpatient (CLI) | payer MEDICARE, SELFPAY ==
[2024-06-05 14:09] LABS: Basophils # 0.1 K/mm3 (0-0.2); Basophils % 0.7 % (0.1-2.0); Eosinophils # 0.1 K/mm3 (0.0-0.4); Eosinophils % 1.9 % (0.1-12.0); Hematocrit 43.2 % (42.0-52.0); Hemoglobin 14.1 g/dL (14.1-18.0); Lymphocytes # 2.1 K/mm3 (0.7-4.5); Mean Corpuscular HGB Conc 32.6 g/dL (31.8-35.4); Mean Corpuscular Hemoglobin 29.3 pg (27.0-31.2); Mean Corpuscular Volume 89.6 fl (80-94); Mean Platelet Volume 9.9 fl (7.4-10.4); Monocytes # 0.7 K/mm3 (0.1-1.0); Monocytes % 8.9 % (1.7-9.3); Neutrophils # 4.5 K/mm3 (1.8-7.8); Neutrophils % 60.1 % (37.0-80.0); Nucleated Red Blood Cells # 0 10^3/uL; Nucleated Red Blood Cells % 0 %; Platelet Count 182 K/mm3 (142-424); Red Blood Count 4.82 M/mm3 (4.60-6.20); Red Cell Distribution Width 13.6 % (11.5-17.5); Red Cell Distribution Width-SD 44.2 fL; White Blood Count 7.5 K/mm3 (4.8-10.8)
[2024-06-05 14:54] LABS: Albumin Level 3.9 g/dl (3.5-5.0)
[2024-06-05 14:55] LABS: Chloride 106 mmol/L (98-107); Potassium 4.3 mmoL/L (3.5-5.1); Sodium 140 mmol/L (136-145)
[2024-06-05 14:57] LABS: Alanine Aminotransferase 17 U/L (12-78); Anion Gap 10.3 mEq/L (5-15); Aspartate Amino Transferase 25 U/L (17-59); Bilirubin,Unconjugated 0.6 mg/dL (0.0-1.1); Blood Urea Nitrogen 25 mg/dl (9-20); Carbon Dioxide 28 mmol/L (22.0-30.0); Estimated Glomerular Filt Rate 59 ml/min (>60); GFR (African American) 71 ML/MIN (>60); Total Protein,Serum 6.4 g/dl (6.3-8.2)
[2024-06-05 14:58] LABS: Alkaline Phosphatase 50 U/L (38-126); Bilirubin,Indirect 0.6 mg/dL (0.0-0.9); Bilirubin,Total 0.6 mg/dl (0.2-1.3); Calcium 9.5 mg/dl (8.4-10.2); Chol/HDL Ratio 2.5 (1-3.5); Cholesterol 109 mg/dl (140-200); Glucose 87 mg/dl (74-100); HDL Cholesterol 44 mg/dl (40-60); Magnesium 1.5 mg/dl (1.6-2.3); Triglycerides 206 mg/dl (30-150); VLDL Cholesterol 41 mg/dL (0-40)
[2024-06-05 15:09] LABS: Direct LDL Cholesterol 37.59 mg/dL (100-129)
[2024-06-05 15:14] LABS: Free T4 (Free Thyroxine) 1.33 ng/dl (0.78-2.19)
[2024-06-05 15:28] LABS: Thyroid Stimulating Hormone 1.05 uIU/mL (0.465-4.68)
== END 2024-06-05 23:59 | disposition home or self-care (01) ==
LOC: LAB 13:36
PROVIDERS: Visit Provider Nurse Practitioner
DX: E78.1 Pure hyperglyceridemia (principal); E03.9 Hypothyroidism, unspecified; E66.811 Obesity, class 1; I25.10 Atherosclerotic heart disease of native coronary artery without angina pectoris; E78.2 Mixed hyperlipidemia; R53.83 Other fatigue; I10 Essential (primary) hypertension
CPT/HCPCS: 36415; 80048; 80061; 80076; 83735; 84439; 84443; 85025

== ENCOUNTER 2024-08-19 11:01 | Emergency (ER) | payer MEDICARE, SELFPAY ==
[2024-08-19 11:11] VITALS: BP 182/95; PULSE 60; RESP 17; TEMP 36.6; O2SAT 97; BMI 28.7
--- OUTSIDE RECORDS SUMMARY | 2024-08-19 11:13 | XMS_ITS | Clinical Summary ---
Author Organization [facility] [place] Address [address] [place] [address] Phone Care Team Providers Care Social Sciences Lecturer Name Role Phone Sarah Richard MD Primary Care Provider [phone] Allergies Active Allergy Reactions Criticality Noted Date Comments Atorvastatin Myalgia High 05/25/2022 Lisinopril Cough 05/25/2022 Rosuvastatin Other (See Comments) 09/29/2021 Body aches Medications ATENOLOL ORAL Take 25 mg by mouth 2 times daily. Active triamcinolone (KENALOG) 0.1 % Top Lotion APPLY TO AFFECTED AREA TWICE DAILY NEEDED DIRECTED 2 Active XARELTO 2.5 mg Oral Tablet 2 Active aspirin 81 mg Oral Tablet, Delayed Release (E.C.) Take 81 mg by mouth daily. 2 Active valACYclovir (VALTREX) 1 gram Oral Tablet TAKE 2 TABLETS BY MOUTH DIRECTED UPON PICKUP THEN TAKE 2 TABLETS BY MOUTH 12 HOURS LATER 3 Active finasteride (PROSCAR) 5 mg Oral Tablet Take 5 mg by mouth daily. 3 Active losartan (COZAAR) 100 mg Oral Tablet Take 100 mg by mouth daily. 3 Active Coenzyme Q10 100 mg Oral Capsule Take by mouth. Active azelastine (ASTELIN) 137 mcg (0.1 %) Nasl Aerosol, [place] 2 Sprays in each nostril 2 times daily. 4 Active montelukast (SINGULAIR) 10 mg Oral TabletIndication s:Seasonal allergic rhinitis, unspecified trigger Take 1 Tablet by mouth nightly. 90 Tablet 1 4 Active Active Problems Patient Care Coordination No te Formatting of this note migh t be different from the original. Outreach via [email or web address] or Letter completed by Trini Chandra, Compliance Review on 09/24/2023. Problem Noted Date Diagnosed Date Elevated serum creatinine 06/11/2023 Coronary artery disease invo lving enterprise coronary artery of enterprise heart without angina pectoris 08/05/2015 Overview (08/28/2021): CARDIOLOGY NOTE FROM 2017 -- [facility] ischemic heat disease s/p stenting in the past. Then in August of 2013, he was found to have disease of the distal posterolateral and diagonal, but both were small and medical management recommended. Pt the developed problem with fatigue in June of last year and went to [facility]. Pt had an echo done at that time that showed mild LV dysfunction. He continued to have concerns after this and called the office with chest pain, SOA, and fatigue. It was decided he should have a cardiac cath for definitive cause of cardiac concerns. Cath in July of 2015 showed a patent stent to the LAD and disease of small PDA with normal EF reported. 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 0 08/28/2021 Encounters Date Type Department Care Team Description 05/19/2024 Patient Outreach [facility] [address] [place] [address] Sarah Richard MD Central Patient Navigator Outreach ([facility] ) from Last 3 Months Immunizations Immunization Administration Dates Next Due Hepatitis A, Adult 12/21/2017 Moderna SARS-CoV-2 Vaccine 12+ Yrs (Light blue b order) 04/18/2020,03/20/2020 Pneumococcal Conjugate Vaccine 13 Valent 020 Surgical History Surgery Date Site/Laterality Comments CORONARY ANGIOPLASTY WITH STENT PLACEMENT 09/10/2020 5 stents APPENDECTOMY Medical History Medical History Date Comments Hypertension ASCVD (arteriosclerotic cardiovascular disease) Benign prostatic hyperplasia without lower urina ry tract symptoms Osteoarthritis of right knee, unspecified osteoa rthritis type Cancer (HCC) Family History Medical History Relation Name Comments High Cholesterol Mother High Cholesterol Sister Relation Name Status Comments Mother Sister Social History Tobacco Use Types Packs/Day Years Used Date Smoking Tobacco: Never Smokeless Tobacco: Never Tobacco Cessation:Counseling Given: Not Answered Alcohol Use Standard Drinks/Week Comments Never 0 (1 standard drink = 0.6 oz pur e alcohol) AUDIT-C Answer Date Recorded Q1: How often do you have a drink containing alc ohol? Never 02/16/2020 Average Number of Drinks Not on file 020 Frequency of Binge Drinking Not on file 01/23 PHQ-2 Answer Date Recorded PHQ-2 Total Score 0 04/27/2022 Sex and Gender Information Value Date Recorded Sex Assigned at Not on file Legal Sex Male 11:43 AM EST Gender Identity Not on file Sexual Orientation Not on file Obstetrics History Last Filed Vital Signs Vital Sign Reading Time Taken Comments Blood Pressure 166/82 09/13/2023 1:23 PM EDT Pulse 63 09/13/2023 1:07 PM EDT Temperature 36.7 C (98.1 F) 09/13/2023 1:07 PM EDT Respiratory Rate 18 09/13/2023 1:07 PM EDT Oxygen Saturation 99% 09/13/2023 1:07 PM EDT Inhaled Oxygen Concentration - - Weight 95.3 kg (210 lb) 09/13/2023 1:07 PM EDT Height 175.3 cm (5' 9 ) 09/13/2023 1:07 PM EDT Body Mass Index 31.01 09/13/2023 1:07 PM EDT Plan of Treatment Health Maintenance Due Date Last Done Comments Hepatitis C Screening 1963 DTaP/TDaP/Td (1 - Tdap) 1965 Zoster (1 of 2) 1996 Pneumococcal Vaccine 50+ (2 of 2 - PCV20 or PCV21) 04/26/2020 04/27/2019 RSV or 60+ (1 - 1-dose 75+ series) 2021 Wellness Exam Medicare 09/30/2022 09/29/2021 COVID-19 Vaccine (3 - 2023-2 5 season) 2023 04/18/2020, 03/20/2020 Influenza Vaccine (Season Ended) 2024 Hepatitis B Vaccine Aged Out No longe r eligible based on patient's age to complete this topic Meningococcal B Vaccine Aged Out No l onger eligible based on patient's age to complete this topic Goals Goal Patient Goal Type Associated Problems Recent Progress Patient-Stated? Author Blood Pressure < 140/90 Blood Pressure 166/82(2023 1:23 PM EDT) Sarah Lainez MD Maintain a healthy diet, exercise regularly and maintain an ideal body weight General No Sarah Richard MD Insurance [employer] HMO MR [employer] MED[employer] HMO MR * Guarantor: Manriquez Kevin W Account Type Relation to Patient Date of Phone Billing Address [place] Personal Family Self Care Teams Social Sciences Lecturer Relationship Specialty Start Date End Date Sarah Richard MD [address] [place] [address] PCP - General Family Medicine 09/29/21
--- OUTSIDE RECORDS SUMMARY | 2024-08-19 11:13 | XMS_ITS | Data Portability ---
Author Organization [facility] and [facility] Address [address] [place] [address] Assessment No assessment recorded. Plan of Treatment Reminders Order Date Submit Date Provider Last Modified By Organization Details Last Modified Time Details Appointments PROC 15 2024 01:00P Jourdan Akbar Jr, MD Not available Not available Not available Lab PSA, total + free, serum or plasma 2023 [email or web address], [address], 02/09/2024 07:52:24 PSA, total + free, serum or plasma 2023 024 [email or web address] [facility], [address] [place] [address], [address], 06/09/2023 07:47:50 PSA, total + free, serum or plasma 2022 [email or web address], [address], 01/06/2023 11:34:58 urinalysi s, dipstick 2022 [email or web address], [address], 12/30/2022 12:39:18 PSA, total + free, serum or plasma 2022 023 [email or web address] Not available 09/09/2022 12:45:28 urinalysi s, dipstick 2022 023 [email or web address] [facility] [address], [address], 09/04/2022 08:24:01 Referral None recorded. Procedures None recorded. Surgeries None recorded. Imaging None recorded. Medication Orders None recorded. Patient TargetsNo targets recorded. Patient InstructionsNo instructions recorded. Reason for Referral None Reported. Results Created Date Observation Date Name Description Value Unit Range Abnormal Flag Note LastModifiedBy Organization Detail LastModifiedTime 09/03/1909/02/2022 PSA TOTAL + %FREE note Unles s other philip noted testi ng perfo rmed at: [facility] [address] [place] [address] [phone] Elliot lyles MD CLIA: [id number] Not Available [facility] (Lab Registration) [address], [place], [address], 09/03/2022 11:18:12 09/03/19 23 09/03/2022 PSA TOTAL + %FREE prostate specific Ag, serum 3.4 NG/mL 0.0-4. 0 Eulalio ECLIA metho dolog y. . Accor ding to the Ameri can Urolo gical Assoc iatio n, Serum PSA shoul d decre ase and remai n at undet ectab le level s after radic al prost atect kanwal. The AUA defin es bioch emica l recur rence as an initi al PSA value 0.2 ng/mL or great er follo wed by a subse quent confi rmato ry PSA value 0.2 ng/mL or great er. Value s obtai pattie with diffe rent assay metho ds or kits canno t be used inter phillips eably . Resul ts canno t be inter prete d as absol [place] evide nce of the prese nce or absen ce of audrey gillespie se. SENT TO REFER ENCE LAB Not Available [facility] (Lab Registration) [address], [place], [address], 09/03/2022 11:18:12 09/03/19 23 09/03/2022 PSA TOTAL + %FREE PSA, free 1.05 NG/mL n/a Eulalio ECLIA metho dolog y. SENT TO REFER ENCE LAB Not Available [facility] (Lab Registration) [address] [place], [address], 09/03/2022 11:18:12 09/03/19 23 09/03/2022 PSA TOTAL + %FREE % free PSA 30.9 % The table below lists the proba bilit y of prost ate cance r for men with non-s uspic ious AMBROSE resul ts and total PSA betwe en 4 and 10 ng/mL , by patie nt age (Angela webster et al, ALICIA 1998, 279:1 542). % Free PSA 50-64 yr 65-75 yr 0.00- 10.00 % 56% 55% 10.01 -15.0 0% 24% 35% 15.01 -20.0 0% 17% 23% 20.01 -25.0 0% 10% 20% >25.0 0% 5% 9% Pleas e note: Harvinder reis et al did not make speci fic recom menda tions regar ding the use of perce nt free PSA for any other popul ation of men. Perfo rmed at: - Lab[address], [place] [id number] [facility] Lab Direc tor: Timothy henning PhD, Phone : [phone] SENT TO REFER ENCE LAB Not Available [facility] (Lab Registration) [address] [place], [address], 09/03/2022 11:18:12 09/03/1909/02/2022 urina lysis , dipst ick Leukocytes (reference range) trace Not Available [facility] [address], [address], 09/02/2022 15:16:23 09/03/19 23 09/02/2022 urina lysis , dipst ick Nitrite (reference range:) negati ve Not Available [address], [address], 09/02/2022 15:16:23 09/03/19 23 09/02/2022 urina lysis , dipst ick Urobilinogen (reference range) 0.2 Not Available [address], [address], 09/02/2022 15:16:23 09/03/19 23 09/02/2022 urina lysis , dipst ick Protein (reference range) negati ve Not Available [address], [address], 09/02/2022 15:16:23 09/03/19 23 09/02/2022 urina lysis , dipst ick pH (reference range 5-8.5) 5.0 Not Available [address], [address], 09/02/2022 15:16:23 09/03/19 23 09/02/2022 urina lysis , dipst ick Blood (reference range:) negati ve Not Available [address], [address], 09/02/2022 15:16:23 09/03/19 23 09/02/2022 urina lysis , dipst ick Specific [place] (reference range) 1.025 Not Available [address], [address], 09/02/2022 15:16:23 09/03/19 23 09/02/2022 urina lysis , dipst ick Ketone (reference range) negati ve Not Available [address], [address], 09/02/2022 15:16:23 09/03/19 23 09/02/2022 urina lysis , dipst ick Bilirubin (reference range) negati ve Not Available [facility] [address], [address], 09/02/2022 15:16:23 09/03/19 23 09/02/2022 urina lysis , dipst ick Glucose (reference range) negati ve Not Available [facility] [place] [address] [place], [address], 09/02/2022 15:16:23 12/31/19 23 12/30/2022 PSA TOTAL + %FREE note Unles s other philip noted testi ng perfo rmed at: [facility] [address] [place] [address] [phone] Elliot lyles MD CLIA: [id number] Not Available [facility] (Lab Registration) [address] [place] [address] [place], [address], 12/31/2022 11:18:23 12/31/19 23 12/31/2022 PSA TOTAL + %FREE prostate specific Ag, serum 4.0 NG/mL 0.0-4. 0 Eulalio ECLIA metho dolog y. . Accor ding to the Ameri can Urolo gical Assoc iatio n, Serum PSA shoul d decre ase and remai n at undet ectab le level s after radic al prost atect kanwal. The AUA defin es bioch emica l recur rence as an initi al PSA value 0.2 ng/mL or great er follo wed by a subse quent confi rmato ry PSA value 0.2 ng/mL or great er. Value s obtai pattie with diffe rent assay metho ds or kits canno t be used inter phillips eably . Resul ts canno t be inter prete d as absol [place] evide nce of the prese nce or absen ce of audrey gillespie se. SENT TO REFER ENCE LAB Not Available [facility] (Lab Registration) [address] , [place], [address], 12/31/2022 11:18:23 12/31/19 23 12/31/2022 PSA TOTAL + %FREE PSA, free 1.01 NG/mL n/a Eulalio ECLIA metho dolog y. SENT TO REFER ENCE LAB Not Available [facility] (Lab Registration) [address] , [place], [address], 12/31/2022 11:18:23 12/31/19 23 12/31/2022 PSA TOTAL + %FREE % free PSA 25.3 % The table below lists the proba bilit y of prost ate cance r for men with non-s uspic ious AMBROSE resul ts and total PSA betwe en 4 and 10 ng/mL , by patie nt age (Angela eleanor et al, ALICIA 1998, 279:1 542). % Free PSA 50-64 yr 65-75 yr 0.00- 10.00 % 56% 55% 10.01 -15.0 0% 24% 35% 15.01 -20.0 0% 17% 23% 20.01 -25.0 0% 10% 20% >25.0 0% 5% 9% Pleas e note: Harvinder reis et al did not make speci fic recom menda tions regar ding the use of perce nt free PSA for any other popul ation of men. Perfo rmed at: - [facility]co [address] [address] [facility] Lab Direc tor: Timothy henning PhD, Phone : [phone] SENT TO REFER ENCE LAB Not Available [facility] (Lab Registration) [address], [place], [address], 12/31/2022 11:18:23 12/31/19 23 12/30/2022 urina lysis , dipst ick Leukocytes (reference range) negati ve Not Available [facility] [place] [address], [place], [address], 12/30/2022 11:37:41 12/31/19 23 12/30/2022 urina lysis , dipst ick Nitrite (reference range:) negati ve Not Available [address], [address], 12/30/2022 11:37:41 12/31/19 23 12/30/2022 urina lysis , dipst ick Urobilinogen (reference range) 0.2 Not Available [address], [address], 12/30/2022 11:37:41 12/31/1912/30/2022 urina lysis , dipst ick Protein (reference range) negati ve Not Available [address], [address], 12/30/2022 11:37:41 12/31/19 23 12/30/2022 urina lysis , dipst ick pH (reference range 5-8.5) 5.5 Not Available [address], [address], 12/30/2022 11:37:41 12/31/19 23 12/30/2022 urina lysis , dipst ick Blood (reference range:) negati ve Not Available [address], [address], 12/30/2022 11:37:41 12/31/19 23 12/30/2022 urina lysis , dipst ick Specific [place] (reference range) 1.025 Not Available [address], [address], 12/30/2022 11:37:41 12/31/19 23 12/30/2022 urina lysis , dipst ick Ketone (reference range) negati ve Not Available [address], [address], 12/30/2022 11:37:41 12/31/19 23 12/30/2022 urina lysis , dipst ick Bilirubin (reference range) negati ve Not Available [facility] [address], [address], 12/30/2022 11:37:41 12/31/19 23 12/30/2022 urina lysis , dipst ick Glucose (reference range) negati ve Not Available [facility] [place] [address] [place], [address], 12/30/2022 11:37:41 06/02/19 24 06/02/2023 PSA TOTAL + %FREE note Unles s other philip noted testi ng perfo rmed at: [facility] [address] [place] [address] [phone] Elliot lyles MD CLIA: [id number] Not Available [facility] (Lab Registration) [address] , [place], [address], 06/03/2023 08:19:28 06/02/19 24 06/03/2023 PSA TOTAL + %FREE prostate specific Ag, serum 6.1 NG/mL 0.0-4. 0 high Eulalio ECLIA metho dolog y. . Accor ding to the Ameri can Urolo gical Assoc iatio n, Serum PSA shoul d decre ase and remai n at undet ectab le level s after radic al prost atect kanwal. The AUA defin es bioch emica l recur rence as an initi al PSA value 0.2 ng/mL or great er follo wed by a subse quent confi rmato ry PSA value 0.2 ng/mL or great er. Value s obtai pattie with diffe rent assay metho ds or kits canno t be used inter phillips eably . Resul ts canno t be inter prete d as absol [place] evide nce of the prese nce or absen ce of audrey gillespie se. SENT TO REFER ENCE LAB Not Available [facility] (Lab Registration) [address] [place], [address], 06/03/2023 08:19:28 06/02/19 24 06/03/2023 PSA TOTAL + %FREE PSA, free 1.18 NG/mL n/a Eulalio ECLIA metho dolog y. SENT TO REFER ENCE LAB Not Available [facility] (Lab Registration) [address] [place], [address], 06/03/2023 08:19:28 06/02/19 24 06/03/2023 PSA TOTAL + %FREE % free PSA 19.3 % The table below lists the proba bilit y of prost ate cance r for men with non-s uspic ious AMBROSE resul ts and total PSA betwe en 4 and 10 ng/mL , by patie nt age (Angela eleanor et al, ALICIA 1998, 279:1 542). % Free PSA 50-64 yr 65-75 yr 0.00- 10.00 % 56% 55% 10.01 -15.0 0% 24% 35% 15.01 -20.0 0% 17% 23% 20.01 -25.0 0% 10% 20% >25.0 0% 5% 9% Pleas e note: Harvinder reis et al did not make speci fic recom menda tions regar ding the use of perce nt free PSA for any other popul ation of men. [facility] [address] [place] [address] [facility] Lab Direc tor: Timothy henning PhD, Phone : [phone] SENT TO REFER ENCE LAB Not Available [facility] (Lab Registration) [address] [place], [address], 06/03/2023 08:19:28 02/02/20 24 02/02/2024 PSA TOTAL + %FREE note Unles s other philip noted testi ng perfo rmed at: [facility] [address] [place] [address] [phone] Elliot lyles MD CLIA: [id number] Not Available [facility] (Lab Registration) [address], [place], [address], 02/03/2024 10:10:34 02/02/20 24 02/03/2024 PSA TOTAL + %FREE prostate specific Ag, serum 5.6 NG/mL 0.0-4. 0 high Eulalio ECLIA metho dolog y. . Accor ding to the Ameri can Urolo gical Assoc iatio n, Serum PSA shoul d decre ase and remai n at undet ectab le level s after radic al prost atect kanwal. The AUA defin es bioch emica l recur rence as an initi al PSA value 0.2 ng/mL or great er follo wed by a subse quent confi rmato ry PSA value 0.2 ng/mL or great er. Value s obtai pattie with diffe rent assay metho ds or kits canno t be used inter phillips eably . Resul ts canno t be inter prete d as absol [place] evide nce of the prese nce or absen ce of audrey gillespie se. SENT TO REFER ENCE LAB Not Available [facility] (Lab Registration) [address], [place], [address], 02/03/2024 10:10:34 02/02/20 24 02/03/2024 PSA TOTAL + %FREE PSA, free 1.39 NG/mL n/a Eulalio ECLIA metho dolog y. SENT TO REFER ENCE LAB Not Available [facility] (Lab Registration) [address], [place], [address], 02/03/2024 10:10:34 02/02/20 24 02/03/2024 PSA TOTAL + %FREE % free PSA 24.8 % The table below lists the proba bilit y of prost ate cance r for men with non-s uspic ious AMBROSE resul ts and total PSA betwe en 4 and 10 ng/mL , by patie nt age (Angela eleanor et al, ALICIA 1998, 279:1 542). % Free PSA 50-64 yr 65-75 yr 0.00- 10.00 % 56% 55% 10.01 -15.0 0% 24% 35% 15.01 -20.0 0% 17% 23% 20.01 -25.0 0% 10% 20% >25.0 0% 5% 9% Alice taveras note: Harvinder reis et al did not make speci fic recom menda nic grant ding the use of perce nt free PSA for any other popul ation of men. Perfo rmed at: CB - [facility] [address], [place] [address] Lab Direc tor: Timothy henning PhD, Phone : [phone] SENT TO REFER ENCE LAB Not Available [facility] (Lab Registration) [address] , [place], [address], 02/03/2024 10:10:34 Result Notes None recorded. Procedures Surgical History Date Name Laterality Status Provider Name and Address Organization Details Recorded Time 02/02/2024 Cystoscopy -Male completed Sahil Akbar Jr, MD [address] [place] [address], [address], [place], [address], [place] [facility] [place] [facility] [place] 02/02/2024 14:26:59 09/22/2023 Cystoscopy -Male completed Sahil Akbar Jr, MD [address] [place] [address], [address], [place], [address], [place] [facility] [place] [facility] [place] 10/22/2023 20:31:37 06/02/2023 Cystoscopy -Male completed Sahil Akbar Jr, MD [address] [place] [address] Drive, [address], [place], [address], [place] [facility] [place] [facility] [place] 06/02/2023 16:41:32 12/30/2022 Cystoscopy -Male completed Sahil Akbar Jr, MD [address], [address], [place], [address], [place] [facility] [place] [facility] [place] 12/30/2022 15:35:00 09/02/2022 Cystoscopy -Male completed Sahil Akbar Jr, MD [address] [place] [address] Drive, [address], [place], [address], [place] - [facility] & [place] 09/15/2022 08:43:47 06/02/2022 Cystoscopy -Male completed Sahil Akbar Jr, MD [address] [place] [address], [address], [place], [address], [facility] - [facility] & [place] 06/02/2022 12:13:40 Imaging Results None recorded. Procedure Notes None recorded. Medical Equipment None Reported. Allergies No known drug allergies Medications Name Sig Start Date Stop Date Status Note LastModified by Organization Details LastModified Time clarithromyc in 500 mg tablet active Not Available Not Available Not Available prednisone 20 mg tablet active Not Available Not Available Not Available atenolol 25 mg tablet TAKE 1 TABLET BY MOUTH TWICE A DAY FOR HIGH BLOOD PRESSURE active Not Available Not Available No t Available chlorthalido ne 50 mg tablet active Not Available Not Available Not Available ciprofloxaci n 500 mg tablet TAKE 1 TABLET BY MOUTH TWICE A DAY FOR 6 WEEKS active Not Available Not Available No t Available valsartan 80 mg-hydrochlo rothiazide 12.5 mg tablet active Not Available Not Available Not Available tamsulosin 0.4 mg capsule TAKE 1 CAPSULE BY MOUTH EVERY DAY 2024 active Not Available Not Available Not Avai lable meclizine 25 mg tablet TAKE 1 TABLET BY MOUTH EVERY 6 HOURS NEEDED FOR DIZZINESS FOR UP TO 30 DAYS. active Not Available Not Available No t Available triamcinolon e acetonide 0.1 % topical ointment active Not Available Not Available Not Available montelukast 10 mg tablet active Not Available Not Available Not Available azelastine 137 mcg (0.1 %) nasal spray INSTILL 2 SPRAYS INTRANASALL Y TWICE A DAY ADMINISTER INTO EACH NOSTRIL active Not Available Not Available No t Available triamcinolon e acetonide 0.1 % lotion APPLY TO AFFECTED AREA TWICE DAILY NEEDED DIRECTED active Not Available Not Available No t Available methylpredni solone 4 mg tablets in a dose pack TAKE 6 TABLETS ON DAY 1 DIRECTED ON PACKAGE AND DECREASE BY 1 TAB EACH DAY FOR A TOTAL OF 6 DAYS active Not Available Not Available No t Available cefdinir 300 mg capsule active Not Available Not Available N ot Available losartan 100 mg tablet TAKE 1 TABLET BY MOUTH EVERY DAY active Not Available Not Available No t Available finasteride 5 mg tablet TAKE 1 TABLET BY MOUTH EVERY DAY active Not Available Not Available No t Available aspirin active Not Available Not Avail able Not Available Cipro active Not Available Not Availa ble Not Available finasteride active Not Available Not A vailable Not Available B Complex active Not Available Not Belgica ilable Not Available zinc active Not Available Not Availa ble Not Available niacin active Not Available Not Availa ble Not Available Fish Oil active Not Available Not Avai lable Not Available Benadryl active Not Available Not Avai lable Not Available Glucosamine active Not Available Not A vailable Not Available Vitamin D3 active Not Available Not Av ailable Not Available Multi Vitamin active Not Available Not Available Not Available Repatha SureClick 140 mg/mL subcutaneous pen injector INJECT 140MG SUBCUTANEOU SLY EVERY 2 WEEKS FOR CHOLESTEROL active Not Available Not Available Not Available Repatha Pushtronex active Not Available Not Available N ot Available losartan potassium (bulk) active Not Available Not Available Not Available Vitals Date Recorded Body height Body mass index (BMI) Body weight Body temperature Provider Name and Address Organization Details Last Updated DateTime 06/02/2023 175.26 cm 23.6 kg/m2 28980.78 g 98.1 [degF] Dunia Kauffman [facility] & [place] 06/02/2023 10:05:03 Date Recorded Body temperature Provider Name a nd Address Organization Details Last Updated DateTime 09/02/2022 98.1 [degF] Dunia Jiang [facility] & [place] 09/02/2022 14:36:51 Date Recorded Body height Body mass index (BMI) Body weight Provider Name and Address Organization Details Last Updated DateTime 09/02/2022 175.26 cm 23.6 kg/m2 80511.78 g Desi Jiang [facility] & [place] 09/02/2022 14:36:07 Date Recorded Body height Body mass index (BMI) Body weight Body temperature Provider Name and Address Organization Details Last Updated DateTime 09/22/2023 175.26 cm 23.6 kg/m2 06330.78 g 98.2 [degF] Dunia Jiang [facility] & [place] 09/22/2023 13:51:19 Date Recorded Body height Body mass index (BMI) Body weight Body temperature Provider Name and Address Organization Details Last Updated DateTime 12/30/2022 175.26 cm 23.6 kg/m2 28246.78 g 97.9 [degF] [facility] [place] 12/30/2022 10:30:12 Date Recorded Body height Body mass index (BMI) Body weight Body temperature Provider Name and Address Organization Details Last Updated DateTime 02/02/2024 175.26 cm 23.6 kg/m2 97887.78 g 98.5 [degF] [facility] & [place] 02/02/2024 13:01:37 Social History None recorded. Functional Status Question Answer Note LastModified by Organization D etails LastModified Time What is your level of alcohol consumption? None [email or web address] Information not available 06/02/2022 Mental Status None recorded. Family History Nothing Reported Notes:mother cancer liver father parkinson sister alive Medical History Condition Response Heart Disease Y Past Encounters Encounter ID Performer Location Encounter Start Date Encounter Closed Date Diagnosis/Indication Diagnosis SNOMED-CT Code Diagnosis ICD10 Code Diagnosis Note [id number] Sahil Akbar Jr, MD [facility] [place] [address] 06/02/2022 10:19:27 06/02/2022 11:44:37 Neoplasm of urinary bladder 940721890 D49.4 patient referred for one-week history of gross hematuria. Bladder ultrasound at [facility] showed a possible bladder mass. Cystoscopy today confirms a papillary bladder mass from the left-sided floor. There does appear to be some adherent clot to the tumor. We discussed the findings and TURBT was recommende d. We discussed the procedure and complicati ons. We discussed that he would likely be able to go home afterwards but it is possible we may need to stay overnight. We will plan mitomycin at the time of his TURBT as well. Lower urin norma tract symptoms due to benign prostatic hypertrophy [id number] 9101 N40.1 patient with long history of BPH. He continues on finasterid e. Cystoscopy today shows a 4 cm long prostate with bilobar hyperplasi a. Prostate s pecific antigen above reference range [id number] R97.20 patient with history of elevated PSA. He has had 2 biopsies by his previous urologist and we will continue to monitor. [id number] Sahil Akbar Jr, MD [facility] [place] [address] 06/08/2022 11:42:28 06/08/2022 12:50:09 Malignant neoplasm of urinary bladder [id number] C67.9 patient status post TURBT of a bladder tumor 3 days ago. 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 Patient did undergo a mitomycin treatment at the time. We discussed the pathology findings today and I recommende d we proceed with surveillan ce monitoring . We will repeat a cystoscopy in 3 months. Postoperat noelle retention of urine [id number] R33.8 patient had acute urinary retention status post TURBT. Lauren catheter was placed in the emergency room the night after his TUR BT. Voiding trial was performed today instilling 200 cc through his catheter and into his bladder. The catheter then removed and he was able to void 140 cc of slightly pink urine. I am going to placed patient on a course of tamsulosin and he is to continue the finasterid e. Prostate s pecific antigen above reference range [id number] R97.20 patient with history of elevated PSA. He has had 2 biopsies by his previous urologist and we will continue to monitor. Lower urin norma tract symptoms due to benign prostatic hypertrophy [id number] 9101 N40.1 patient with long history of BPH. He continues on finasterid e. patient with the acute retention postop is TURBT. His prostate was enlarged at time of the cystoscopy . We are going to add tamsulosin to his finasterid e. [id number] Sahil Akbar Jr, MD [facility] [place] [address] [place] [address] 09/02/2022 14:25:58 09/02/2022 15:10:41 Prostate specific antigen above reference range [id number] R97.20 patient with history of elevated PSA. He has had 2 biopsies by his previous urologist and we will continue to monitor. PSA today. History of malignant neoplasm of bladder 444822545 Z85.51 patient with history of bladder cancer. He underwent an initial resection in May 2022. Mitomycin was instilled at that time. Returns today for 6 for surveillan ce cystoscopy . Cystoscopy showed a large prostate. There was no evidence of recurrent tumor. There is still some postoperat noelle change 5 o'clock position from the previous resection. Lower urin norma tract symptoms due to benign prostatic hypertrophy [id number] 9101 N40.1 patient with long history of BPH. patient continues on tamsulosin and finasterid e. He is voiding well and will continue the medication s. [id number] [facility] Jr, [facility] [address] [address] 12/30/2022 10:03:03 12/30/2022 11:36:13 Prostate specific antigen above reference range [id number] R97.20 patient with history of elevated PSA. He has had 2 biopsies by his previous urologist and we will continue to monitor. PSA today. History of malignant neoplasm of bladder [id number] Z85.51 patient with history of bladder cancer. He underwent an initial resection in May 2022. Mitomycin was instilled at that time. Returns today for 6 for surveillan ce cystoscopy . Cystoscopy showed a large prostate. There was no evidence of recurrent tumor. [id number] Sahil Akbar Jr, MD [address] [address] 06/02/2023 09:29:00 06/02/2023 10:12:02 Prostate specific antigen above reference range [id number] R97.20 patient with history of elevated PSA. He has had 2 biopsies by his previous urologist and we will continue to monitor. PSA today. Patient is on finasterid e. History of malignant neoplasm of bladder [id number] Z85.51 patient with history of bladder cancer. He underwent an initial resection in May 2022. Mitomycin was instilled at that time. Returns today for surveillan ce cystoscopy . Cystoscopy showed a large prostate. There was no evidence of recurrent tumor. we will repeat cystoscopy in 6 months. Benign pro static hyperplasia with outflow obstruction [id number] N40.1 patient with prostate enlargemen t and trilobar hyperplasi a with moderate-s ized median lobe on cystoscopy . He is on tamsulosin and finasterid e states he is voiding well. We will continue medication s. [id number] Sahil Akbar Jr, MD [address] [id number] 09/22/2023 13:43:35 09/22/2023 14:51:58 History of malignant neoplasm of bladder [id number] Z85.51 patient with history of bladder cancer. He underwent an initial resection in May 2022. Mitomycin was instilled at that time. Pt with recent hematuria after pushing a tractor out of road. Cysto today without evidence of recurrence . There was friable prostate and some erythema of bladder base.RTO for cysto in 4 mo Prostate s pecific antigen above reference range [id number] R97.20 patient with history of elevated PSA. Most recent PSA was 6.1 in May. He has had 2 biopsies by his previous urologist and we will continue to monitor. Patient is on finasterid e. Benign pro static hyperplasia with outflow obstruction [id number] N40.1 patient with prostate enlargemen t and trilobar hyperplasi a with moderate-s ized median lobe on cystoscopy . He is on tamsulosin and finasterid e states he is voiding well. We will continue medication s. [id number] Sahil Akbar Jr, MD [facility] [address] [address] 02/02/2024 12:54:08 02/02/2024 13:31:39 Prostate specific antigen above reference range [id number] R97.20 patient with history of elevated PSA. Most recent PSA was 6.1 in May. He has had 2 biopsies by his previous urologist and we will continue to monitor. Patient is on finasterid e. History of malignant neoplasm of bladder [id number] Z85.51 patient with history of bladder cancer. He underwent an initial resection in May 2022. Mitomycin was instilled at that time. Cysto today without evidence of recurrence . There was friable prostate and some erythema of bladder base. there is circumfere ntial growth of the prostate back into the bladder. Patient reassured no evidence of tumors.RTO for cysto in 6 mo Benign pro static hyperplasia with outflow obstruction [id number] N40.1 patient with prostate enlargemen t and trilobar hyperplasi a with moderate-s ized median lobe on cystoscopy . He is on tamsulosin and finasterid e states he is voiding well. We will continue medication s. Health Concerns Section Related Observation LastModified by Organization Detai ls LastModified Time None Recorded Concern Status LastModified by Organization Details LastModified Time None Recorded Advance Directives Directive None Recorded Payers Insurance Date Sequence Insurance Name Policy Number Policy Emery Covered Member ID Emery Member ID Guarantor Name 01/30/2024 1 [employer] - GOLD PLUS (MEDICARE REPLACEMENT/A DVANTAGE - HMO) Kevin Manriquez [id number] Kevin Manriquez Notes Date Note Type Note Provider Name and Address Organization Details Recorded Time 09/02/2022 text/html patient is a 67-year-old white male with a history of bladder cancer diagnosed in May 2022. He underwent a TURBT and installation of mitomycin at that time. 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 Follows up today for his 1st surveillance cystoscopy. He denies any hematuria. Patient did have some postop urinary retention after his TURBT. He states he is voiding well. He continues on tamsulosin.Patient also with a history of elevated PSA. He has had 2 biopsies by another urologist. We will continue to monitor his PSAs. Sahil Akbar Jr, MD [address], [address], [address], [facility] 09/15/2022 08:44:28 12/30/2022 text/html Patient is a 77-year-old white male with history of bladder cancer and elevated PSA. He underwent a TURBT in mitomycin instillation in May 2022. His pathology showed a high-grade papillary urothelial carcinoma without invasion. His 1st cystoscopy in follow-up was in August and no recurrence at that time. He returns today for surveillance cystoscopy.Patient with history of BPH and continues on tamsulosin. He also has history of an elevated PSA and has had 2 previous biopsies. His PSA in August was 3.4. Sahil Akbar Jr, MD [address], [address], [place], [address], [facility] 12/30/2022 15:36:08 06/02/2023 text/html patient is a 77-year-old white male with a history of bladder cancer and elevated PSA. Returns today for surveillance cystoscopy. Patient underwent a TURBT with mitomycin instillation in May 2022. His pathology showed a high-grade papillary urothelial carcinoma without invasion. He denies any lower urinary tract symptoms or hematuria. His last cystoscopy was in December 2022.Patient with history of elevated PSA. Patient's most recent PSA was 4.0 with a free PSA putting him at a 9% risk of prostate cancer. Previous PSA was 3.4 in August 2022. He has had 2 previous prostate biopsies without cancer. Does have a large prostate. Sahil Akbar Jr, MD [address], [address], [place], [address], [facility] & [place] 06/02/2023 16:43:58 09/22/2023 text/html 78 yo male with h/o bladder cancer and elevated PSA. Pt s/p TURBT with mitomycin instillation in 05/2022. Path showed high grade papillary urothelial carcinoma. His last cysto in 05/2023 without recurrence.Pt also with h/o elevated PSA. Most recent PSA was 6.1/19.3 on 05/2023.Pt returns today and states a little blood in his urine after pushing a tractor out of road. He states he had a small clot as well. Pt is on Tamsulosin and Finasteride. CT scan at [place] reportedly wnl. Sahil Akbar Jr, MD [address], [address], [place], [address], [facility] & [place] 10/22/2023 20:34:30 02/02/2024 text/html patient is a 78-year-old white male with history of bladder cancer, elevated PSA and BPH. He returns today routine follow-up. Patient's bladder tumor was found in May 2022 and was treated with TURBT and mitomycin. Pathology showed high-grade papillary urothelial carcinoma. His last cystoscopy was in May 2023 he returns today for surveillance cystoscopy. he states some occasional hematuria.Patient with history of elevated PSA. He is undergone 2 previous biopsies by a urologist in [place] which were negative. His last PSA was 6.1 in May 2023. He is on finasteride.Patien t with history of BPH. He continues on tamsulosin and finasteride and states he is voiding well. Sahil Akbar Jr, MD [address], [address], [place], [address], [facility] [place] [facility] [place] 02/02/2024 14:29:04
[2024-08-19 11:15] VITALS: BP 152/80; PULSE 79; RESP 18; O2SAT 100
--- NOTE | 2024-08-19 12:35 | XR_ITS ---
PROCEDURE INFORMATION: Exam: XR Pelvis Exam date and time: 08/19/2024 12:43 PM Age: 79 years old Clinical indication: Hip pain; Right hip; Additional info: Right-sided hip pain TECHNIQUE: Imaging protocol: Radiologic exam of the pelvis. Views: 1 or 2 view. COMPARISON: CT ABDOMEN PELVIS W CON 09/14/2020 9:25 PM FINDINGS: Bones/joints: Severe degenerative changes in the right hip. [id number].. Moderate degenerative changes of the left hip.. There is no evidence of acute fracture.There is no evidence of malalignment or dislocation. Soft tissues: Unremarkable. IMPRESSION: 1. Severe degenerative changes in the right hip. [id number].. 2. Moderate degenerative changes of the left hip.. 3. There is no evidence of acute fracture.There is no evidence of malalignment or dislocation.
--- NOTE | 2024-08-19 12:35 | CT_ITS ---
PROCEDURE INFORMATION: Exam: CT Lumbar Spine Without Contrast Exam date and time: 08/19/2024 12:42 PM Age: 79 years old Clinical indication: Low back pain; Additional info: Right-sided back pain, /hip pain, HX of back SX TECHNIQUE: Imaging protocol: Computed tomography of the lumbar spine without contrast. Radiation optimization: All CT scans at this facility use at least one of these dose optimization techniques: automated exposure control; mA and/or kV adjustment per patient size (includes targeted exams where dose is matched to clinical indication); or iterative reconstruction. COMPARISON: CT ABDOMEN PELVIS W CON 09/14/2020 9:25 PM FINDINGS: Bones/joints: There is no evidence of acute fracture.There is no evidence of malalignment or dislocation. Anterior and lateral osteophyte formation. Broad-based disc bulge, facet hypertrophy, and ligament hypertrophy at L3/L4 and L4/L5 consistent with spinal stenosis.. Broad-based disc bulge at L5/S1 consistent with degenerative disc disease. Soft tissues: Unremarkable. IMPRESSION: 1. There is no evidence of acute fracture.There is no evidence of malalignment or dislocation. 2. Broad-based disc bulge, facet hypertrophy, and ligament hypertrophy at L3/L4 and L4/L5 consistent with spinal stenosis.. 3. Broad-based disc bulge at L5/S1 consistent with degenerative disc disease.
--- NOTE | 2024-08-19 12:37 | ED_ITS ---
<Statement entered by Mary Dover MD - 08/19/24 15:39> I was consulted by the RUTH, and we discussed the complexity of the problems being addressed. I approved the treatment and management plan for this patient's care in the emergency department, thus performing a substantive portion of the medical decision making. Mary Dover MD, JAMAL, FACEP Discharge Plan Disposition Patient Disposition: Home, Self-Care Condition: Good Prescriptions Prescriptions: New sulfamethoxazole-trimethoprim [Bactrim DS] 800-160 mg tablet 1 tab PO BID 14 Days Qty: 28 0RF methocarbamol 750 mg tablet 750 mg PO HS Qty: 30 0RF No Action tamsulosin 0.4 mg capsule 0.4 mg PO ONCE atenolol 25 mg tablet 25 mg PO BID Qty: 180 3RF losartan 100 mg tablet See Rx Instructions .ROUTE .COMPLEX Qty: 90 3RF Dose Instruction: TAKE 1 TABLET BY MOUTH EVERY DAY Rx Instructions: TAKE 1 TABLET BY MOUTH EVERY DAY Repatha Syringe 140 mg/mL syringe 140 mg SQ Q2W Qty: 3 2RF finasteride 5 mg tablet 5 mg PO HS Referrals Follow up/Referrals: Frederick Machado DO [Staff Physician, Orthopedics] - See instructions Aiden Merritt MD [Referring, Urology] - See instructions Sraah Richard MD [Primary Care Provider, Medical] - See instructions Activity Restrictions/Add. Instructions Additional Instructions/Restrictions: Please follow-up with urology, please take your medication as prescribed, please return to the emergency with any worsening signs or symptoms, please follow-up with GI, orthopedic physician, PCP and vascular team for your incidental findings. Clinical Impressions Clinical Impression: Degenerative disc disease, lumbar, Acute UTI, Osteoarthritis of right hip Instructions Patient Instructions: Osteoarthritis, Acute Cystitis, DI for Low Back Pain, DI for Degenerative Disc Disease Print Language Print Language: [place] Discharge ED Provider: Mary Dover General Adult HPI General Chief complaint: Back Pain/Injury Stated complaint: sever back/right hip pain 2xdays Time Seen by Provider: 08/19/24 12:25 Mode of Arrival: Ambulatory Source of Information: Patient Description of Symptoms (Recalled from ER Triage Doc. by RN): a couple days ago he was twisting and reaching for something, and since ten has been having pain in his right hip. Patient states he took 2 tylenol at 0800 this morning. Patient states he also took what he had left of a steroid pack and it didn't help either. History of Present Illness HPI narrative: 79-year-old male presents the emergency department with right sided lower back pain, right hip pain, no radicular type symptomatology, after an injury 2 days ago when he was reaching , describes it as a twisting injury, states he felt a pop , denies any numbness or tingling, denies any upper or lower extremity weakness, denies any urinary bladder or bowel dysfunction, [place] any saddle anesthesia, does have remote history of what sounds like a discectomy in the lower lumbar spine multiple years ago, patient [place] any fever chills chest pain shortness of breath nausea vomiting constipation diarrhea no abdominal pain, no overt flank pain, patient denies any substance use, or abuse, initial triage vitals are unremarkable, he has no other acute symptomatology, other past medical history consistent with hyperlipidemia, hypothyroidism, CAD status post multiple stent placements, hypertension. Onset (ago): day(s) Related Data Home Medications ?Medication ?Instructions ?Recorded ?Confirmed finasteride 5 mg tablet 5 mg PO HS prostate 04/30/22 06/05/24 tamsulosin 0.4 mg capsule 0.4 mg PO ONCE 12/06/2305/23 Previous Rx's ?Medication ?Instructions ?Recorded atenolol 25 mg tablet 25 mg PO BID High blood pres sure 11/25/23 #180 tabs losartan 100 mg tablet See Rx Instructions .Route 1 04/09/23 .COMPLEX #90 tabs evolocumab 140 mg/mL subcutaneous 140 mg SQ Q2W #3 mL 07/06/24 syringe (Repatha Syringe) methocarbamol 750 mg tablet 750 mg PO HS #30 tabs 07/24 10/16 sulfamethoxazole 800 1 tab PO BID 14 days #28 tab s 08/19/24 mg-trimethoprim 160 mg tablet (Bactrim DS) Allergies Allergy/AdvReac Type Severity Reaction Status Date / Time atorvastatin AdvReac Intermediate myalgia Verified 06/05/24 13:09 lisinopril AdvReac cough Verified 06/05/24 13:09 rosuvastatin AdvReac cramping, Verified 06/05/24 13:09 ache feelling [facility] Disclaimer: The information contained in this section may have been updated after the patient was seen, as this information can be updated by other users. Medical History Hypothyroidism BPV (benign positional vertigo) Elevated HDL HTN (hypertension) BPH (benign prostatic hyperplasia) CAD (coronary artery disease) Surgical History Hx of heart artery stent History of cardiac cath Hx of appendectomy History of cholecystectomy Family History Mother Liver cancer Heart disease Hypertension Sister Heart disease Hypertension Social History Smoking Status: Never smoker alcohol intake: never substance use type: denies use current occupational status: retired Travel in the last 8 weeks?: Inside the [place] household members: spouse housing: house marital status: Have you lived/traveled outside US in past 30 days?: No Contact w/someone who lives/traveled outside US past 30 days?: No Exposure to someone with infectious disease in past 14 days?: No Do you have a fever (greater than 100.4 F or 38 C)?: No Have you tested positive for COVID-19?: No Exposed to someone with COVID-19 in past 14 days?: No Do you have a sore throat?: No Do you have a cough?: No Do you have any weakness?: No Do you have any diarrhea?: No Are you experiencing any unusual bleeding?: No Do you have any muscle aches/pain?: Yes Do you have any abdominal pain?: No Are you experiencing loss of taste or smell?: No Other Medical History Have you received the Flu Vaccine for this season: No Have you received the Pneumonia Vaccine: Yes ROS Obtained: Yes All systems reviewed & no additional complaints except as documented Physical Exam General General appearance: alert and in no apparent distress Head Head exam: atraumatic and normocephalic Eye Eye exam: Present PERRL and EOMI ENT ENT exam: Present mucous membranes moist Neck Neck exam: Present normal inspection Chest Chest inspection: Present normal inspection and symmetric chest wall rise Respiratory Respiratory exam: Present normal lung sounds bilaterally; Absent respiratory distress, wheezes or stridor Cardiovascular Cardiovascular exam: Present regular rate and normal rhythm Abdominal Exam Abdominal exam: Present soft; Absent tenderness, guarding, rebound or rigidity Extremities Exam Extremities exam: Present normal inspection Back Exam Back exam: Present normal inspection, tenderness and paraspinal tenderness; Absent CVA tenderness (R), CVA tenderness (L), vertebral tenderness, straight leg raise (R) or straight leg raise (L) Comment: Negative straight leg test bilaterally, patient has 5 out of 5 strength in the bilateral lower and upper extremities, no gross sensation deficit, paraspinal tenderness is noted to the lumbar spine, as well as right hip joint, hip intrinsic and extrinsic movements are intact, no spinal tenderness palpation to the entire spine. Neurological Exam Neurological exam: Present alert and oriented X3 Psychiatric Psychiatric exam: Present normal affect Skin Skin exam: Present warm and dry Medical Decision Making Medical Records Medical records reviewed: Yes I reviewed the patient's medical records. Screening: Per USPSTF and CDC recommendations, given the prevalence of disease in our region, it is our hospital?s policy to screen for HIV and viral Hepatitis for all patients aged 18 and over and those with ongoing risk factors. Roman Inquiry Pt receiving controlled substance: No Roman was queried for this patient: No Vital Signs: 08/19/24 11:11 08/19/24 11:15 Temperature 98 F Temperature Source Oral Pulse Rate 79 Pulse Rate [Right Radial] 60 Respiratory Rate 17 18 Blood Pressure 152/80 H Blood Pressure [Right Arm] 182/95 H Blood Pressure Mean [Right Arm] 124 Blood Pressure Source Automatic Cuff Blood Pressure Source [Right Arm] Automatic Cuff Blood Pressure Position Sitting Blood Pressure Position [Right Arm] Sitting 02 Sat by Pulse Oximetry 97 100 Oxygen Delivery Method Room Air Room Air Lab Data Lab Results 08/19/24 13:07: Urine Color Yellow, Urine Appearance Cloudy, Urine pH 6.0, Ur Specific [place] 1.020, Urine Protein Negative, Urine Glucose (UA) Negative, Urine Ketones Negative, Urine Blood 2+ A, Urine Nitrate Positive A, Urine Bilirubin Negative, Urine Urobilinogen 0.2, Ur Leukocyte Esterase 2+ A, Urine RBC 5-10, Urine WBC 20-50, Ur Squamous Epith Cells Occasional, Urine Bacteria 4+ 08/19/24 13:57: WBC 12.1 H, RBC 5.27, Hgb 15.9, Hct 47.3, MCV 89.8, MCH 30.2, MCHC 33.6, RDW 13.2, Plt Count 201, MPV 9.8, Neut % (Auto) 75.3, Lymph % (Auto) 18.4, [place] % (Auto) 4.9, Eos % (Auto) 0.2, Baso % (Auto) 0.5, Neut # (Auto) 9.2 H, Lymph # (Auto) 2.2, [place] # (Auto) 0.6, Eos # (Auto) 0.0, Baso # (Auto) 0.1, Sodium 140, Potassium 4.1, Chloride 99, Carbon Dioxide 32 H, Anion Gap 13.1, BUN 24 H, Creatinine 1.20, Estimated Creat Clear 65, Estimated GFR 59, Est GFR ( Amer) 71, Glucose 101 H, Lactate 0.8, Calcium 9.7, Total Bilirubin 0.9, AST 28, ALT 23, Alkaline Phosphatase 54, Total Protein 7.9, Albumin 4.7, Globulin 3.2, Albumin/Globulin Ratio 1.5, Lipase 82 08/19/24 13:57 08/19/24 13:57 Orders (Tests/Meds): ED MEDICATIONS Generic Name Dose Route Start Last Admin Trade Name Freq PRN Reason Stop Dose Admin Sodium Chloride 10 ml 08/19/24 14:39 08/19/24 14:40 Sodium Chloride 0.9% 10ml Syr (Rad Only) IV 09/18/24 14:38 10 ml NEEDED PRN Administration Maintain IV Site Discontinued Medications Generic Name Dose Route Start Last Admin Trade Name Freq PRN Reason Stop Dose Admin Acetaminophen 500 mg 08/19/24 12:37 08/19/24 12:43 Acetaminophen 500mg Tab PO 08/19/24 12:38 500 mg ONCE ONE Administration Iopamidol 75 ml 08/19/24 14:39 08/19/24 14:40 Iopamidol-370 (76%);100ml Bottle IV 08/19/24 14:40 75 ml ONCE ONE Administration Lidocaine 1 each 08/19/24 12:36 08/19/24 12:43 Lidocaine 5% Transdermal Patch TD 08/19/24 12:37 1 each ONCE ONE Administration Methocarbamol 750 mg 08/19/24 12:36 08/19/24 12:43 Methocarbamol 500mg Tablet PO 08/19/24 12:37 750 mg ONCE ONE Administration ORDERS Category Date Time Status CT abdomen pelvis w con Stat Cat Scan 08/19/24 13:[address] lumbar spine wo con Stat Cat Scan 08/19/24 12:35 Completed Pelvis XR 1-2 views [XR pelvis 1-2V] Stat Exams 08/19/24 12:35 Completed Complete Blood Count Auto Diff Stat Lab 08/19/24 13:57 Completed Comprehensive Metabolic Panel Stat Lab 08/19/24 13:57 Completed Lactic Acid Stat Lab 08/19/24 13:57 Completed Lipase Stat Lab 08/19/24 13:57 Completed Urinalysis and Microscopic Stat Lab 08/19/24 13:07 Completed Urine Culture Stat Micro 08/19/24 13:07 Received Medical Decision Narrative: 79-year-old male presents emergency department with right-sided lumbar spine pain/right-sided hip pain after injury 2 days ago, differential diagnose include but not limited to, hip bursitis, osteoarthritis of the right hip, hip fracture, acute lumbar sacral strain, lumbar spinal stenosis, degenerative disc disease of lumbar spine, lumbar vertebral body fracture, facet arthropathy, among others. I discussed patient case with inpatient Dr. Dover Will obtain UA, will give 500 mg p.o. Tylenol, some 150 mg p.o. methocarbamol, 1 lidocaine patch, obtain CT lumbar spine and x-ray of the hip for further evaluation/characterization. UA is notable for positive nitrites, 2+ hematuria, 2+ leukocyte esterase, 20-50 WBCs, 5-10 RBCs, 4+ urine bacteria. Reexamination of the patient at approximately 1:50 PM, patient complaining of more flank pain, and having chills , requesting a blanket, with his urinalysis results, will also add to the differential ureterolithiasis, acute UTI, acute pyelonephritis, and obtain basic laboratory studies lipase lactate, and will obtain CT ab pelvis with contrast for further evaluation of characterization of the patient's flank pain and urinary symptomatology. CBC is notable for leukocytosis 12.1 CMP is notable for BUN elevation at 24, lactic acid is within normal limits lipase in normal limits, otherwise unremarkable CMP. I reviewed the patient's CT lumbar spine without contrast on the corresponding radiologic report, there is no evidence of acute fracture, no evidence of malalignment or dislocation, broad-based disc bulge facet hypertrophy, and ligament hypertrophy at L3-L4 L4-L5 consistent with spinal stenosis, broad-based disc bulge at L5-S1 with degenerative disc disease. I reviewed the patient's pelvic x-ray along the corresponding radiologic report, severe degenerative changes of right hip [id number], degenerative range of the left hip, no evidence of acute fracture no evidence of malalignment or dislocation. 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 I discussed all results with the patient at bedside, will prescribe Bactrim DS mg p.o. twice daily for 14 days for patient's UTI?prostatitis, with urology follow-up, patient will follow-up with GI routinely for incidental diverticulum noted on CT abdomen pelvis, asymptomatic currently, does not have any signs or symptoms of active GI ulcer, patient follow-up with orthopedic provider for osteoarthritis of the hip, as well as PCP regarding lumbar spine pathology, recommend physical therapy, will give p.o. methocarbamol 750 mg as needed for symptomatic relief, patient voiced understanding agree with current plan/discharge plan, patient was given strict ED return precautions. Of note, patient does know about his incidental finding of aneurysm, follows with vascular for this. Critical Care Critical Care Time Critical Care Time: No
[2024-08-19] MEDS: ACETAMINOPHEN 500MG TAB 500 MG PO (12:43)
[2024-08-19] MEDS: LIDOCAINE 5% TRANSDERMAL PATCH 1 EACH TD (12:43)
[2024-08-19] MEDS: METHOCARBAMOL 500MG TABLET 750 MG PO (12:43)
[2024-08-19 13:19] LABS: Microscopic, Urine URINE MICROSCOPIC (MICROSCOPIC)
[2024-08-19 13:25] LABS: Appearance,Urine CLOUDY (Clear); Bilirubin,Urine Negative (Negative); Blood, Urine 2+ (Negative); Color,Urine YELLOW (Yellow); Glucose,Urine (UA) Negative (Negative); Ketones,Urine Negative (Negative); Leukocyte Esterase,Urine 2+ (Negative); Nitrate,Urine POSITIVE (Negative); Protein,Urine Negative (Negative); Urobilinogen,Urine 0.2 EU/dl (0.2)
[2024-08-19 13:31] LABS: WBC,Urine 20-50 #/hpf (0-3)
[2024-08-19 13:32] LABS: Bacteria,Urine 4+ /lpf; Squamous Epithelial Cell,Urine Occasional #/hpf (0-5)
--- NOTE | 2024-08-19 13:50 | CT_ITS ---
PROCEDURE INFORMATION: Exam: CT Abdomen And Pelvis With Contrast Exam date and time: 08/19/2024 2:36 PM Age: 79 years old Clinical indication: Abdominal pain; Additional info: Right-sided flank pain, HX bladder CA, UTI TECHNIQUE: Imaging protocol: Computed tomography of the abdomen and pelvis with contrast. Radiation optimization: All CT scans at this facility use at least one of these dose optimization techniques: automated exposure control; mA and/or kV adjustment per patient size (includes targeted exams where dose is matched to clinical indication); or iterative reconstruction. Contrast material: ISOVUE; Contrast volume: 75 ml; Contrast route: IV; COMPARISON: CR XR PELVIS 1-2V 08/19/2024 12:43 PM FINDINGS: Coronary arteries: Coronary artery calcifications may indicate coronary artery disease. Liver: Normal. No mass. Gallbladder and biliary ducts: Cholecystectomy Pancreas: Normal. No ductal dilation. Spleen: Normal. No splenomegaly. Adrenal glands: Normal. No mass. Kidneys and ureters: Simple cyst right kidney 3.4 cm. . No follow-up imaging recommended . Subcentimeter low attenuation area in the right kidney is too small for characterization. There is no evidence of renal or ureteral calcifications. Stomach and bowel: Diverticulosis of the rectosigmoid. No diverticulitis. 2.5 cm collection of air and debris projecting off of the 3rd duodenum. Most likely represents duodenal diverticulum., Less likely duodenal ulcer. Diverticulosis of the rectosigmoid. No diverticulitis Appendix: No evidence of appendicitis. Intraperitoneal space: Unremarkable. No free air. No significant fluid collection. Vasculature: Unruptured aneurysm of the ascending aorta 4.7 x 4.4 cm.. Lymph nodes: Unremarkable. No enlarged lymph nodes. Urinary bladder: Unremarkable as visualized. Reproductive: The prostate is enlarged, greater than 5 cm. The prostate projects into the posterior aspect of the bladder . Recommend urology consult.. Bones/joints: Unremarkable. No acute fracture. Soft tissues: Left inguinal hernia contains fat IMPRESSION: 1. 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 2. The prostate is enlarged, greater than 5 cm. The prostate projects into the posterior aspect of the bladder . Recommend urology consult.. 3. 2.5 cm collection of air and debris projecting off of the 3rd duodenum. Most likely represents duodenal diverticulum., Less likely duodenal ulcer. COMMENTS: Consistent with the [employer]'s Incidental Findings Committee white paper (J Am Haylee Radiol 2018): Any incidental renal lesion less than 1 cm or classified as too small to characterize, or any incidental cystic renal lesion characterized as simple-appearing, is likely benign. No follow-up imaging is recommended for these lesions per consensus recommendations based on imaging criteria.
[2024-08-19 14:11] LABS: Basophils # 0.1 K/mm3 (0-0.2); Basophils % 0.5 % (0.1-2.0); Eosinophils % 0.2 % (0.1-12.0); Hematocrit 47.3 % (42.0-52.0); Hemoglobin 15.9 g/dL (14.1-18.0); Immature Granulocytes # 0.08 10^3uL; Immature Granulocytes % 0.7 %; Lymphocytes # 2.2 K/mm3 (0.7-4.5); Lymphocytes % 18.4 % (10-50); Mean Corpuscular HGB Conc 33.6 g/dL (31.8-35.4); Mean Corpuscular Hemoglobin 30.2 pg (27.0-31.2); Mean Corpuscular Volume 89.8 fl (80-94); Mean Platelet Volume 9.8 fl (7.4-10.4); Monocytes # 0.6 K/mm3 (0.1-1.0); Monocytes % 4.9 % (1.7-9.3); Neutrophils # 9.2 K/mm3 (1.8-7.8); Neutrophils % 75.3 % (37.0-80.0); Nucleated Red Blood Cells # 0 10^3/uL; Nucleated Red Blood Cells % 0 %; Platelet Count 201 K/mm3 (142-424); Red Blood Count 5.27 M/mm3 (4.60-6.20); Red Cell Distribution Width 13.2 % (11.5-17.5); Red Cell Distribution Width-SD 43.6 fL; White Blood Count 12.1 K/mm3 (4.8-10.8)
[2024-08-19 14:12] LABS: Albumin Level 4.7 g/dl (3.5-5.0); Chloride 99 mmol/L (98-107); Potassium 4.1 mmoL/L (3.5-5.1); Sodium 140 mmol/L (136-145)
[2024-08-19 14:14] LABS: Blood Urea Nitrogen 24 mg/dl (9-20)
[2024-08-19 14:15] LABS: Alanine Aminotransferase 23 U/L (12-78); Albumin/Globulin Ratio 1.5 (1.1-1.8); Alkaline Phosphatase 54 U/L (38-126); Anion Gap 13.1 mEq/L (5-15); Aspartate Amino Transferase 28 U/L (17-59); Bilirubin,Total 0.9 mg/dl (0.2-1.3); Calcium 9.7 mg/dl (8.4-10.2); Carbon Dioxide 32 mmol/L (22.0-30.0); Creatinine Clearance Estimated 65 mL/min (50-200); Estimated Glomerular Filt Rate 59 ml/min (>60); GFR (African American) 71 ML/MIN (>60); Globulin 3.2 g/dL (1.3-3.2); Glucose 101 mg/dl (74-100); Lipase 82 U/L (23-300); Total Protein,Serum 7.9 g/dl (6.3-8.2)
[2024-08-19 14:26] LABS: Lactic Acid 0.8 mmol/L (0.7-2.1)
[2024-08-19] MEDS: SODIUM CHLORIDE 0.9% 10ML SYR (RAD ONLY) 10 ML IV (14:40)
[2024-08-19] MEDS: IOPAMIDOL-370 (76%);100ML BOTTLE 75 ML IV (14:40)
[2024-08-19 15:28] VITALS: BP 147/84; PULSE 78; RESP 16; TEMP 36.3; O2SAT 97
--- NOTE | 2024-08-20 08:33 | PC.NURSE ---
Urine culture results reviewed by Dr. Doan, will wait for sensitivities. No new orders at this time.
--- NOTE | 2024-08-21 10:30 | PC.NURSE ---
I discussed the final urine culture results with . No change needed to treatment plan.
== END 2024-08-19 15:28 | disposition home or self-care (01) ==
PROVIDERS: Physician Assistant; Emergency Provider Student in an Organized Health Care Education/Training Program; PCP Family Medicine
DX: N39.0 Urinary tract infection, site not specified (principal); M51.26 Other intervertebral disc displacement, lumbar region; M47.816 Spondylosis without myelopathy or radiculopathy, lumbar region; M16.0 Bilateral primary osteoarthritis of hip; M25.551 Pain in right hip; I10 Essential (primary) hypertension; E78.5 Hyperlipidemia, unspecified; Z86.79 Personal history of other diseases of the circulatory system
CPT/HCPCS: 72131; 72170; 74177; 80053; 81001; 83605; 83690; 85025; 87086; 87088; 87186; 99285; Q9967

== ENCOUNTER 2024-09-19 07:15 | Day surgery (SDC) | payer MEDICARE, SELFPAY ==
[2024-09-14 15:32] VITALS: BMI 31.0
[2024-09-19 07:47] VITALS: BP 142/69; PULSE 72; RESP 18; TEMP 36.2; O2SAT 97
--- NOTE | 2024-09-19 07:47 | EXP.GEN.HP ---
HPI HPI HPI: Forwarded from recent outpatient visit dated September 06, 2024: This is a 79-year-old gentleman seen in consultation from his primary care provider for evaluation regarding abdominal pain. He recently presented to the emergency department with complaints of abdominal swelling and back/right lower quadrant abdominal pain. He has point tenderness in the right lower abdomen and is worried about a bulge . No obvious herniation or other abnormality at this site was noted per CT scan. CBC dated August 19, 2024 reviewed. WBC 12.1. Hemoglobin and platelet count normal. CMP dated August 19, 2024 reviewed. Potassium, creatinine, and LFTs normal. CT scan dated August 19, 2024 reviewed. Ascending aortic aneurysm noted. 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 Enlarged prostate noted. The patient is aware and is discussing with his urologist. Rectosigmoid diverticulosis noted. No evidence of diverticulitis noted. 2.5 cm likely duodenal diverticulum noted. No obvious abdominal wall herniation with the exception of a fat-containing left inguinal hernia noted. [facility] Disclaimer: The information contained in this section may have been updated after the patient was seen, as this information can be updated by other users. Medical History (Updated 09/19/24 @ 07:49 by Lincoln Coppola MD) Bladder cancer Hypothyroidism BPV (benign positional vertigo) Elevated HDL HTN (hypertension) BPH (benign prostatic hyperplasia) CAD (coronary artery disease) Surgical History Hx of heart artery stent History of cardiac cath Hx of appendectomy History of cholecystectomy Family History Mother Liver cancer Heart disease Hypertension Sister Heart disease Hypertension Social History Smoking Status: Never smoker alcohol intake: never substance use type: denies use current occupational status: retired Travel in the last 8 weeks?: Inside the [place] household members: spouse housing: house marital status: Have you lived/traveled outside [place] in past 30 days?: No Contact w/someone who lives/traveled outside US past 30 days?: No Exposure to someone with infectious disease in past 14 days?: No Do you have a fever (greater than 100.4 F or 38 C)?: No Have you tested positive for COVID-19?: No Exposed to someone with COVID-19 in past 14 days?: No Do you have a sore throat?: No Do you have a cough?: No Do you have any weakness?: No Do you have any diarrhea?: No Are you experiencing any unusual bleeding?: No Do you have any muscle aches/pain?: No Do you have any abdominal pain?: No Are you experiencing loss of taste or smell?: No Other Medical History Have you received the Flu Vaccine for this season: No Have you received the Pneumonia Vaccine: No Review of Systems Review of Systems Review of systems:: pertinent systems reviewed and negative unless documented below *Gastrointestinal Gastrointestinal: Reports as per [facility] Meds Home Medications and Allergies Home Medications ?Medication ?Instructions ?Recorded ?Confirmed ?Type finasteride 5 mg tablet 5 mg PO HS prostate 04/30/22 09/19/24 History atenolol 25 mg tablet 25 mg PO BID High blood pressure 11/25/23 09/19/24 Rx #180 tabs tamsulosin 0.4 mg capsule 0.4 mg PO ONCE 12/06/23 09/19/24 History losartan 100 mg tablet See Rx Instructions .Route 02/07/24 09/19/24 Rx .COMPLEX #90 tabs evolocumab 140 mg/mL subcutaneous 140 mg SQ Q2W #3 mL 07/06/24 09/19/24 Rx syringe (Repatha Syringe) coenzyme Q10 30 mg capsule 30 mg PO DAILY 09/14/24 09/19/24 History multivitamin 1 cap PO DAILY 09/14/24 09/19/24 History omega-3 fatty acids 1,000 mg PO DAILY 09/14/24 09/19/24 History vitamin B complex 1 tab PO DAILY 09/14/24 09/19/24 History vitamin B12 0.5 mg-folic acid 1 mg 1 tab PO DAILY 09/14/24 09/19/24 History tablet vitamin B6 1.7 mg-cyanocobalamin 1 tab PO DAILY 09/14/24 09/19/24 History 2.4 mcg-herbs tablet vitamin E mixed-tocotrienol 120 1 cap PO DAILY 09/14/24 09/19/24 History unit-17 mg capsule New Prescriptions to Start Prescriptions: Allergies Allergy/AdvReac Type Severity Reaction Status Date / Time atorvastatin AdvReac Intermediate myalgia Verified 09/19/24 07:36 lisinopril AdvReac Mild cough Verified 09/19/24 07:36 rosuvastatin AdvReac Mild cramping, Verified 09/19/24 07:36 ache feelling Exam Constitutional Constitutional: no acute distress *Routine HEENT Exam Head: Present normocephalic Eye: Present EOMI ENT: Present mucous membranes moist *Routine Neck Exam Neck: Present full ROM *Routine Respiratory Exam Respiratory: Absent respiratory distress *Routine Cardiovascular Exam Cardiovascular: Absent tachycardia *Routine Abdominal Exam Abdominal: Present soft *Routine Rectal Exam Rectal:: deferred *Routine Genitalia Exam Genitalia:: deferred *Routine Extremities Exam Extremities: Present full ROM *Routine Skin Exam Skin: Absent erythema *Routine Neurological Exam Neurological: Present alert Assessment and Plan *Assessment and plan (1) Unspecified abdominal pain: Status: Acute Qualifiers: Abdominal location: unspecified location Qualified Code(s): R10.9 - Unspecified abdominal pain Category: Medical Code(s): R10.9 - Unspecified abdominal pain (2) Abdominal bloating: Status: Acute Category: Medical Code(s): R14.0 - Abdominal distension (gaseous) Plan As per patient wishes, proceed with initial colonoscopy. He is amenable to gastroenterology evaluation but did not want to wait for them to do the scope . I have discussed the risks and benefits including, but not limited to: Bleeding Infection Damage to surrounding tissue Inherent risks of sedation The patient agrees to proceed.
[2024-09-19] MEDS: LACTATED RINGERS 1000ML 1,000 ML 50 ML IV (07:55)
--- NOTE | 2024-09-19 07:59 | EXP.ANES.CKL ---
[facility] Disclaimer: The information contained in this section may have been updated after the patient was seen, as this information can be updated by other users. Medical History Bladder cancer Hypothyroidism BPV (benign positional vertigo) Elevated HDL HTN (hypertension) BPH (benign prostatic hyperplasia) CAD (coronary artery disease) Surgical History Hx of heart artery stent History of cardiac cath Hx of appendectomy History of cholecystectomy Family History Mother Liver cancer Heart disease Hypertension Sister Heart disease Hypertension Social History Smoking Status: Never smoker alcohol intake: never substance use type: denies use current occupational status: retired Travel in the last 8 weeks?: Inside the [place] household members: spouse housing: house marital status: Have you lived/traveled outside [place] in past 30 days?: No Contact w/someone who lives/traveled outside [place] past 30 days?: No Exposure to someone with infectious disease in past 14 days?: No Do you have a fever (greater than 100.4 F or 38 C)?: No Have you tested positive for COVID-19?: No Exposed to someone with COVID-19 in past 14 days?: No Do you have a sore throat?: No Do you have a cough?: No Do you have any weakness?: No Do you have any diarrhea?: No Are you experiencing any unusual bleeding?: No Do you have any muscle aches/pain?: No Do you have any abdominal pain?: No Are you experiencing loss of taste or smell?: No [facility] Anesthesia Checklist Patient Identification Patient Identification: Arm Band and Verbal (Name & ) Structural Data Admitted From: Home Planned Operative Procedure/s: colonscopy Consent for Planned Operative Procedure(s) Verified: Yes Verified Documents: Surgical Consent and History and Physical NPO Status Verified Time NPO: 00:00 Additional verifications Anesthesia Reactions: No Previous Colonoscopy: Yes Airway Assessment Mallampati Score:: Class II Dentition: Good Dentition Neurological Assessment Level of Consciousness: Awake, Alert and Appropriate Hx Seizures: Yes Anesthesia Plan Anesthesia Risk discussed: Yes Anesthesia Plan: Verified ASA Class: II Anesthesia Type: MAC
--- NOTE | 2024-09-19 08:45 | HMH.SCOPE ---
Procedure: Date: 09/19/24 Patient Date of :: 1945 Procedure Performed:: Colonoscopy with polypectomy Indications:: Abdominal bloating Abdominal pain Performing Provider:: Lincoln Coppola MD Referring Provider:: . Sedation:: Monitored anesthesia care Procedure:: After informed consent was obtained the patient was taken to the endoscopy suite. Sedation ensued after the patient was transferred to the left lateral decubitus position. Pulse, blood pressure, and oxygen saturation were monitored throughout the procedure. Digital rectal exam revealed no significant abnormality. The colonoscope was placed in position. The entire colon was evaluated. The colonoscope was carefully removed and the patient was transferred to recovery in stable condition. Please see findings and specimens below for detail. Findings:: Bowel preparation poor Sigmoid diverticulosis Polyps (see specimens) Specimens:: Cecal polyp (cold biopsy forceps) Complex lobulated/pedunculated polyp at 70 cm (hot snare) Recommendations:: Timing of repeat colonoscopy is pending pathology will likely be around 6-12 months with extended/alternate bowel preparation. Likely defer repeat colonoscopy to the gastroenterology service. Gastroenterology consultation pending for evaluation of abdominal bloating, abdominal pain, and likely chronic constipation. Complications:: No immediate with the exception of limited bowel preparation Estimated blood obtained (mL): 1 Colonoscopy Component Colonoscopy Component Was a colonoscopy performed during today's procedure?: Yes Recommended follow up colonoscopy of at least 10 years?: No If no, follow up colonoscopy recommended in ___ years?: (See above) Reason for not recommending >/= 10 yr follow-up interval?: (See above)
[2024-09-19 08:48] VITALS: BP 81/48; PULSE 73; RESP 18; TEMP 36.2; O2SAT 92
[2024-09-19 08:58] VITALS: BP 93/47; PULSE 75; RESP 18; O2SAT 99
[2024-09-19 09:08] VITALS: BP 99/45; PULSE 73; RESP 18; O2SAT 99
[2024-09-19 09:18] VITALS: BP 111/61; PULSE 69; RESP 18; TEMP 36.2; O2SAT 99
== END 2024-09-19 09:21 | disposition home or self-care (01) ==
PROVIDERS: PCP Family Medicine; Visit Provider Surgery
PROC: 0DJD8ZZ Inspection of Lower Intestinal Tract, Via Natural or Artificial Opening Endoscopic (ICD-10-PCS; principal; 2024-09-19 08:30)
DX: K57.30 Diverticulosis of large intestine without perforation or abscess without bleeding (principal); K63.5 Polyp of colon; I25.10 Atherosclerotic heart disease of native coronary artery without angina pectoris; I10 Essential (primary) hypertension; E03.9 Hypothyroidism, unspecified; Z88.8 Allergy status to other drugs, medicaments and biological substances; Z79.899 Other long term (current) drug therapy
CPT/HCPCS: 45380; J2003; J2704; J7120